=== PATIENT | male | born 1960 | race Caucasian/White ===

== ENCOUNTER 2021-05-29 16:50 | Inpatient (IN) | payer SELFPAY ==
[~2021-05-29] VITALS: Ht 172.7 cm; Wt 110.3 kg
[2021-05-29] MEDS ORDERED: VANCOMYCIN PER PHARMACY 0 MG IV SCH ×2 (18:15→21:45)
[2021-05-29] MEDS ORDERED: PIPERACILLIN-TAZOB 3.375GM 100 ML IV ONE (18:15)
[2021-05-29 19:07] LABS: Hematocrit 41.6 % (41.0-53.0); Hemoglobin 13.9 g/dL (13.5-17.5); Mean Corpuscular Hemoglobin 28.8 pg (28.0-32.0); Mean Corpuscular Hgb Conc. 33.4 g/dL (32.0-36.0); Mean Corpuscular Volume 86.3 fL (80.0-100.0); Red Blood Cells 4.82 10^6/uL (4.5-5.90); Red Cell Distribution Width 14.1 % (11.8-14.3); White Blood Cell 19.1 10^3/uL (4.4-10.8)
[2021-05-29 19:14] LABS: Band Neutrophils % (manual) 0; Basophils % (manual) 0 (0.0-2.0); Blast Cells 0; Eosinophils % (manual) 0 (0-7); Metamyelocytes % 0; Myelocytes % 0; Promyelocytes % 0; Reactive Lymphocytes 0
[2021-05-29 19:18] LABS: Alanine Aminotransferase 15 U/L (16-61); Albumin 2.6 g/dL (3.4-5.0); Anion Gap 16 (5-15); Blood Urea Nitrogen 27 mg/dL (7-18); Carbon Dioxide 19 mmol/L (21-32); Chloride 96 mmol/L (98-107); Potassium 3.8 mmol/L (3.5-5.1); Sodium 131 mmol/L (136-145)
[2021-05-29 19:21] LABS: INR 1.06 (0.9-1.15); Partial Thromboplastin Time 22.5 sec (23.6-33.0)
[2021-05-29 19:23] LABS: Lactic Acid w/Reflex 2.1 mmol/L (0.4-2.0)
[2021-05-29 19:25] LABS: Lymphocytes % (manual) 5 (10.0-50.0); Monocytes % (manual) 6 (0-12)
[2021-05-29 19:27] LABS: Alkaline Phosphatase 148 U/L (45-117); Aspartate Aminotransferase 16 U/L (15-37); Bilirubin, Total 0.4 mg/dL (0.2-1.0); GFR African American 79 mL/min; GFR Non-African American 65 mL/min; Total Protein 7.8 g/dL (6.4-8.2)
[2021-05-29 19:42] LABS: BUN/Creatinine Ratio 22.3; Glucose 462 mg/dL (74-106)
[2021-05-29] MEDS ORDERED: InsuLIN REG 1unit/0.01ml Soln (100units/ml) IV ONE (20:00)
[2021-05-29] MEDS ORDERED: SODIUM CHLORIDE 0.9% 1,000 ML IV ONE (20:00)
[2021-05-29] MEDS ORDERED: VANCOMYCIN 1GM/250ML 250 ML IV ONE (20:00)
[2021-05-29] MEDS ORDERED: metroNIDAZOLE 500MG/100ML 100 ML IV ONE (20:00)
[2021-05-29 20:47] LABS: CRP High Sensitivity > 19 mg/dL (< 0.3)
[2021-05-29] MEDS ORDERED: ACETAMINOPHEN 325 MG TAB PO PRN (21:45)
[2021-05-29] MEDS ORDERED: NITROGLYCERIN 0.4 MG SL TAB SL PRN (21:45)
[2021-05-29] MEDS ORDERED: ONDANSETRON HCL 4 MG/2 ML VIAL IV PRN (21:45)
[2021-05-29] MEDS ORDERED: HYDROcodone-ACET 5/325MG TAB PO PRN (21:45)
[2021-05-29] MEDS ORDERED: DEXTROSE (50%) 50ML SYRG IV PRN (21:45)
[2021-05-29] MEDS ORDERED: SODIUM CHLORIDE 0.9% 500 ML IV ONE (21:45)
[2021-05-29] MEDS ORDERED: MORPHINE SULFATE INJECTION 2 MG/ML SYRG IV PRN ×2 (21:45)
[2021-05-29 23:59] VITALS: BP 158/76
[2021-05-30] VITALS (8 sets, daily range): BP systolic 132–160; BP diastolic 73–83
[2021-05-30] MEDS: SODIUM CHLORIDE 0.9% 1,000 ML IV SCH ×2 (00:45→19:48)
[2021-05-30 02:09] LABS: Basophils # (auto) 0 10 ^3/uL (0-0.2); Basophils % (auto) 0.2 % (0.0-2.0); Eosinophils # (auto) 0 10 ^3/uL (0-0.8); Eosinophils % (auto) 0.1 % (0.0-7.0); Hematocrit 37.7 % (41.0-53.0); Hemoglobin 12.8 g/dL (13.5-17.5); Lymphocytes # (auto) 0.8 10 ^3/uL (0.4-5.4); Lymphocytes % (auto) 4.9 % (10.0-50.0); Mean Corpuscular Hemoglobin 29.1 pg (28.0-32.0); Mean Corpuscular Volume 85.7 fL (80.0-100.0); Monocytes # (auto) 1.2 10 ^3/uL (0-1.3); Monocytes % (auto) 7.2 % (0.0-12.0); Neutrophils # (auto) 14.7 10 ^3/uL (1.6-8.6); Neutrophils % (auto) 87.6 % (37.0-80.0); Nucleated Red Blood Cells % 0.1 %; Red Cell Distribution Width 14.1 % (11.8-14.3); White Blood Cell 16.7 10^3/uL (4.4-10.8)
[2021-05-30 02:27] LABS: Albumin 2.3 g/dL (3.4-5.0); Calcium 8.4 mg/dL (8.5-10.1); Potassium 3.7 mmol/L (3.5-5.1)
[2021-05-30 02:30] LABS: Bilirubin, Total 0.5 mg/dL (0.2-1.0); Total Protein 6.8 g/dL (6.4-8.2)
[2021-05-30] MEDS: ACCU-CHEK COMFORT CURVE STRIP VI SCH ×5 (04:00→20:29)
[2021-05-30] MEDS: InsuLIN REG 1unit/0.01ml Soln (100units/ml) SC SCH ×5 (04:00→20:48)
[2021-05-30] MEDS: PIPERACILLIN-TAZOB 3.375GM 100 ML IV SCH ×3 (05:40→19:47)
[2021-05-30] MEDS ORDERED: PROPOFOL 10 MG/ML 20 ML IV ONE ×2 (07:27→08:43)
[2021-05-30] MEDS ORDERED: LIDOCAINE 1% (LOCAL ANESTH.) PF 5ml SDV ONE (07:27)
[2021-05-30] MEDS ORDERED: BUPIVACAINE HCL 50 ML ONE (07:28)
[2021-05-30] MEDS ORDERED: BUPIVACAINE 0.5% P/F INJ 10 ML VIAL ONE (07:28)
[2021-05-30] MEDS ORDERED: METOCLOPRAMIDE HCL 5MG/ml INJ 2ml VIAL ONE (07:30)
[2021-05-30] MEDS ORDERED: DexAMETHasone SOD PHOS 10MG/1ML VIAL INJ ONE (07:30)
[2021-05-30] MEDS ORDERED: fentaNYL CITRATE 100 MCG/2 ML VL ONE (07:31)
[2021-05-30] MEDS ORDERED: MIDAZOLAM HCL 2MG/2ML 2ml VIAL (1mg/ml) ONE (07:32)
[2021-05-30] MEDS ORDERED: ceFAZolin 1GM VL ONE (07:38)
[2021-05-30] MEDS ORDERED: DAKINS HALF STR 0.25% (NaHypochlorite) 473 ML TOPICAL SOL TOP ONE (09:00)
[2021-05-30] MEDS ORDERED: HYDROmorphone HCL 2 MG/ML VL/or syr ONE (09:06)
[2021-05-30] MEDS ORDERED: METOCLOPRAMIDE HCL 5MG/ml INJ 2ml VIAL IV PRN (09:15)
[2021-05-30] MEDS ORDERED: HYDROmorphone HCL 2 MG/ML VL/or syr IV PRN ×2 (09:15)
[2021-05-30] MEDS ORDERED: ONDANSETRON HCL 4 MG/2 ML VIAL IV PRN (09:15)
[2021-05-30] MEDS ORDERED: fentaNYL CITRATE 100 MCG/2 ML VL IV PRN (09:15)
[2021-05-30] MEDS: VANCOMYCIN 1GM/250ML 250 ML IV SCH ×2 (13:34→23:13)
[2021-05-30] MEDS ORDERED: ONDANSETRON HCL 4 MG/2 ML VIAL IV ONE (13:44)
[2021-05-30] MEDS: PANTOPRAZOLE 40 MG/10 ML VIAL INJ IV SCH (16:32)
[2021-05-31] MEDS: ACCU-CHEK COMFORT CURVE STRIP VI SCH ×6 (04:11→20:14)
[2021-05-31] MEDS: InsuLIN REG 1unit/0.01ml Soln (100units/ml) SC SCH ×6 (04:14→20:15)
[2021-05-31 05:00] VITALS: BP 161/81
[2021-05-31] MEDS: PIPERACILLIN-TAZOB 3.375GM 100 ML IV SCH ×4 (06:00→18:33)
[2021-05-31 09:00] VITALS: BP 144/83
[2021-05-31] MEDS: VANCOMYCIN 1GM/250ML 250 ML IV SCH ×2 (09:19→17:53)
[2021-05-31] MEDS: PANTOPRAZOLE 40 MG/10 ML VIAL INJ IV SCH (09:24)
[2021-05-31 13:00] VITALS: BP 136/80
[2021-05-31 17:00] VITALS: BP 143/76
[2021-05-31 20:00] VITALS: BP 162/87
[2021-05-31] MEDS: INSULIN LANTUS (GLARGINE) 1 /0.01ml (100units/ml) SC SCH (21:56)
[2021-05-31 22:00] VITALS: BP 162/87
[2021-06-01] MEDS: ACCU-CHEK COMFORT CURVE STRIP VI SCH ×6 (00:30→21:43)
[2021-06-01] MEDS: PIPERACILLIN-TAZOB 3.375GM 100 ML IV SCH ×5 (00:30→23:38)
[2021-06-01] MEDS: InsuLIN REG 1unit/0.01ml Soln (100units/ml) SC SCH ×6 (00:31→21:43)
[2021-06-01] MEDS: VANCOMYCIN 1GM/250ML 250 ML IV SCH ×3 (01:17→18:25)
[2021-06-01 05:00] VITALS: BP 151/79
[2021-06-01 06:27] LABS: Hematocrit 39.5 % (41.0-53.0); Hemoglobin 13.7 g/dL (13.5-17.5); Mean Corpuscular Hemoglobin 29.2 pg (28.0-32.0); Mean Corpuscular Hgb Conc. 34.8 g/dL (32.0-36.0); Mean Corpuscular Volume 83.9 fL (80.0-100.0); Red Cell Distribution Width 13.8 % (11.8-14.3)
[2021-06-01 06:35] LABS: Calcium 8.2 mg/dL (8.5-10.1); Potassium 3.5 mmol/L (3.5-5.1)
[2021-06-01 06:37] LABS: BUN/Creatinine Ratio 17.1
[2021-06-01 06:49] LABS: Basophils % (manual) 0 (0.0-2.0); Blast Cells 0; Myelocytes % 0; Promyelocytes % 0; Reactive Lymphocytes 0
[2021-06-01 07:49] LABS: Band Neutrophils % (manual) 31; Eosinophils % (manual) 4 (0-7); Lymphocytes % (manual) 22 (10.0-50.0); Metamyelocytes % 4; Monocytes % (manual) 3 (0-12)
[2021-06-01 09:03] VITALS: BP 171/91
[2021-06-01] MEDS: PANTOPRAZOLE 40 MG/10 ML VIAL INJ IV SCH (09:23)
[2021-06-01] MEDS: INSULIN LANTUS (GLARGINE) 1 /0.01ml (100units/ml) SC SCH ×2 (09:32→21:44)
[2021-06-01] MEDS ORDERED: DEXTROSE (50%) 50ML SYRG IV PRN (11:45)
[2021-06-01 13:00] VITALS: BP 173/89
[2021-06-01] MEDS: amLODIPine BESYLATE 5 MG TAB PO SCH (13:05)
[2021-06-01 17:00] VITALS: BP 156/81
[2021-06-01 22:00] VITALS: BP 151/73
[2021-06-02] MEDS: VANCOMYCIN 1GM/250ML 250 ML IV SCH ×3 (01:00→17:00)
[2021-06-02] MEDS: PIPERACILLIN-TAZOB 3.375GM 100 ML IV SCH ×2 (05:08→12:00)
[2021-06-02 05:33] VITALS: BP 164/88
[2021-06-02 05:37] LABS: Calcium 8.2 mg/dL (8.5-10.1); Potassium 3.6 mmol/L (3.5-5.1)
[2021-06-02 05:39] LABS: BUN/Creatinine Ratio 10.8
[2021-06-02 05:47] LABS: Hematocrit 35.6 % (41.0-53.0); Hemoglobin 12.4 g/dL (13.5-17.5); Mean Corpuscular Hemoglobin 28.9 pg (28.0-32.0); Mean Corpuscular Hgb Conc. 34.9 g/dL (32.0-36.0); Mean Corpuscular Volume 82.9 fL (80.0-100.0); Red Cell Distribution Width 13.8 % (11.8-14.3); White Blood Cell 9.7 10^3/uL (4.4-10.8)
[2021-06-02 05:53] LABS: Basophils % (manual) 0 (0.0-2.0); Blast Cells 0; Promyelocytes % 0; Reactive Lymphocytes 0
[2021-06-02] MEDS: ACCU-CHEK COMFORT CURVE STRIP VI SCH ×4 (06:28→22:54)
[2021-06-02] MEDS: hydrALAZINE HCL 20 MG/ML VL IV PRN (06:29)
[2021-06-02] MEDS: InsuLIN REG 1unit/0.01ml Soln (100units/ml) SC SCH ×4 (06:36→23:17)
[2021-06-02 07:06] LABS: Band Neutrophils % (manual) 1; Eosinophils % (manual) 7 (0-7); Lymphocytes % (manual) 15 (10.0-50.0); Metamyelocytes % 1; Monocytes % (manual) 13 (0-12); Myelocytes % 2
[2021-06-02 08:45] VITALS: BP 148/71
[2021-06-02] MEDS: PANTOPRAZOLE 40 MG/10 ML VIAL INJ IV SCH (09:40)
[2021-06-02] MEDS: amLODIPine BESYLATE 5 MG TAB PO SCH (09:40)
[2021-06-02] MEDS: INSULIN LANTUS (GLARGINE) 1 /0.01ml (100units/ml) SC SCH ×2 (10:10→23:17)
[2021-06-02 16:00] VITALS: BP 140/78
[2021-06-02] MEDS: AMPICILLIN & SULBACTAM SODIUM 3 GM in SODIUM CHL 0.9% 100 ML IV SCH (20:54)
[2021-06-02 22:00] VITALS: BP 147/80
[2021-06-03] MEDS: AMPICILLIN & SULBACTAM SODIUM 3 GM in SODIUM CHL 0.9% 100 ML IV SCH ×4 (03:14→21:04)
[2021-06-03 05:00] VITALS: BP 165/89
[2021-06-03 06:17] LABS: Hematocrit 34.7 % (41.0-53.0); Hemoglobin 12.1 g/dL (13.5-17.5); Mean Corpuscular Hemoglobin 29.3 pg (28.0-32.0); Mean Corpuscular Volume 83.6 fL (80.0-100.0); Red Blood Cells 4.15 10^6/uL (4.5-5.90); Red Cell Distribution Width 13.7 % (11.8-14.3); White Blood Cell 8.8 10^3/uL (4.4-10.8)
[2021-06-03 06:25] LABS: Band Neutrophils % (manual) 0; Basophils % (manual) 0 (0.0-2.0); Blast Cells 0; Metamyelocytes % 0; Myelocytes % 0; Promyelocytes % 0; Reactive Lymphocytes 0
[2021-06-03] MEDS: ACCU-CHEK COMFORT CURVE STRIP VI SCH ×3 (06:26→17:41)
[2021-06-03] MEDS: DAKINS QUARTER STR 0.125% (NaHypochlorite) 473 ML TOPICAL SOL TOP SCH ×2 (06:26→11:03)
[2021-06-03 06:28] LABS: BUN/Creatinine Ratio 12.1; Calcium 8.1 mg/dL (8.5-10.1); Potassium 3.7 mmol/L (3.5-5.1)
[2021-06-03] MEDS: InsuLIN REG 1unit/0.01ml Soln (100units/ml) SC SCH ×3 (06:36→17:41)
[2021-06-03] MEDS: hydrALAZINE HCL 20 MG/ML VL IV PRN (06:46)
[2021-06-03 07:35] LABS: Eosinophils % (manual) 6 (0-7); Lymphocytes % (manual) 18 (10.0-50.0); Monocytes % (manual) 14 (0-12)
[2021-06-03 09:00] VITALS: BP 134/69
[2021-06-03] MEDS: PANTOPRAZOLE 40 MG/10 ML VIAL INJ IV SCH (09:56)
[2021-06-03] MEDS: amLODIPine BESYLATE 5 MG TAB PO SCH (09:57)
[2021-06-03] MEDS: INSULIN LANTUS (GLARGINE) 1 /0.01ml (100units/ml) SC SCH ×2 (11:54→22:31)
[2021-06-03] MEDS ORDERED: DEXTROSE (50%) 50ML SYRG IV PRN (12:45)
[2021-06-03 13:00] VITALS: BP 151/83
[2021-06-03 17:00] VITALS: BP 143/70
[2021-06-03] MEDS ORDERED: InsuLIN REG 1unit/0.01ml Soln (100units/ml) SC SCH (22:00)
[2021-06-03 22:17] VITALS: BP 142/76
[2021-06-04] MEDS: DAKINS QUARTER STR 0.125% (NaHypochlorite) 473 ML TOPICAL SOL TOP SCH ×2 (00:36→09:00)
[2021-06-04] MEDS: ACCU-CHEK COMFORT CURVE STRIP VI SCH ×4 (00:37→17:58)
[2021-06-04] MEDS: AMPICILLIN & SULBACTAM SODIUM 3 GM in SODIUM CHL 0.9% 100 ML IV SCH ×3 (02:04→14:26)
[2021-06-04 04:57] LABS: Basophils # (auto) 0 10 ^3/uL (0-0.2); Basophils % (auto) 0.4 % (0.0-2.0); Eosinophils # (auto) 0.3 10 ^3/uL (0-0.8); Eosinophils % (auto) 3.5 % (0.0-7.0); Hematocrit 35.9 % (41.0-53.0); Hemoglobin 12.3 g/dL (13.5-17.5); Lymphocytes # (auto) 1.5 10 ^3/uL (0.4-5.4); Lymphocytes % (auto) 16.6 % (10.0-50.0); Mean Corpuscular Hemoglobin 29.1 pg (28.0-32.0); Mean Corpuscular Hgb Conc. 34.4 g/dL (32.0-36.0); Mean Corpuscular Volume 84.5 fL (80.0-100.0); Monocytes # (auto) 0.8 10 ^3/uL (0-1.3); Monocytes % (auto) 8.3 % (0.0-12.0); Neutrophils # (auto) 6.6 10 ^3/uL (1.6-8.6); Neutrophils % (auto) 71.2 % (37.0-80.0); Nucleated Red Blood Cells % 0.1 %; Red Blood Cells 4.24 10^6/uL (4.5-5.90); Red Cell Distribution Width 14.1 % (11.8-14.3); White Blood Cell 9.3 10^3/uL (4.4-10.8)
[2021-06-04 05:45] VITALS: BP 144/79
[2021-06-04 05:48] LABS: BUN/Creatinine Ratio 13.6; Calcium 8.4 mg/dL (8.5-10.1); Potassium 4.3 mmol/L (3.5-5.1)
[2021-06-04] MEDS: InsuLIN REG 1unit/0.01ml Soln (100units/ml) SC SCH ×3 (07:03→17:59)
[2021-06-04] MEDS: PANTOPRAZOLE 40 MG/10 ML VIAL INJ IV SCH (08:59)
[2021-06-04 09:00] VITALS: BP 139/78
[2021-06-04] MEDS: amLODIPine BESYLATE 5 MG TAB PO SCH (09:00)
[2021-06-04] MEDS ORDERED: LANC-336 XX (10:25)
[2021-06-04] MEDS ORDERED: INSREGI SC (10:25)
[2021-06-04] MEDS ORDERED: BLOO1KIT60 XX (10:25)
[2021-06-04] MEDS ORDERED: AMOX500T86 PO (10:25)
[2021-06-04] MEDS ORDERED: INSLANTI SC (10:25)
[2021-06-04] MEDS: INSULIN LANTUS (GLARGINE) 1 /0.01ml (100units/ml) SC SCH (12:24)
[2021-06-04 12:37] VITALS: BP 143/80
== END 2021-06-04 18:30 | disposition home or self-care (01) | DRG 871 ==
LOC: ER 16:50 → TELE 21:41 → TELE-WESTW 23:43 → WEST WING 05-31 00:26
PROVIDERS: ADMIT Nurse Practitioner; ATTEND Internal Medicine Pulmonary Disease
PROC: 0Y9N0ZZ Drainage of Left Foot, Open Approach (ICD-10-PCS; principal; 2021-05-30 07:44)
DX: A41.9 Sepsis, unspecified organism (principal); E11.10 Type 2 diabetes mellitus with ketoacidosis without coma; E43 Unspecified severe protein-calorie malnutrition; M72.6 Necrotizing fasciitis; L02.612 Cutaneous abscess of left foot; E66.9 Obesity, unspecified; Z68.37 Body mass index [BMI] 37.0-37.9, adult; Z20.822 Contact with and (suspected) exposure to COVID-19
CPT/HCPCS: 36415; 73700; 80048; 80053; 80202; 82010; 82962; 83036; 83605; 85007; 85025; 85027; 85610; 85652; 85730; 86141; 86850; 86900; 86901; 87040; 87070; 87075; 87076; 87077; 87205; 93005; 96365; 96367; 96368; 96375; 97163; 99291; C9113; G0378; J0690; J1100; J1815; J2250; J2405; J2543; J2704; J3490

== ENCOUNTER → 2022-07-28 | Outpatient (CLI) | payer MEDICAID ==
[~2022-07-28] MED LIST: AMOX500T86 PO; BLOO1KIT60 XX; INSLANTI SC; INSREGI SC; LANC-336 XX
== END | disposition home or self-care (01) ==
LOC: LAB 13:37
PROVIDERS: ATTEND Podiatrist
DX: E11.621 Type 2 diabetes mellitus with foot ulcer (principal)
CPT/HCPCS: 87075; 87205

== ENCOUNTER → 2023-05-20 | Outpatient (CLI) | payer MEDICAID ==
[~2023-05-20] VITALS: Ht 30.5 cm; Wt 0.5 kg
[~2023-05-20] MED LIST changes: +SODIUM CHLOR 0.9% PF (SALINE LOCK) 10ML VIAL/SYR IV SCH
[2023-05-20] MEDS: LIDOCAINE 1% (LOCAL ANESTH.) PF 5ml SDV ID ONE (14:23)
== END | disposition home or self-care (01) ==
LOC: XYW 12:50
PROVIDERS: ATTEND Student in an Organized Health Care Education/Training Program
DX: Z45.2 Encounter for adjustment and management of vascular access device (principal); E11.621 Type 2 diabetes mellitus with foot ulcer; L97.509 Non-pressure chronic ulcer of other part of unspecified foot with unspecified severity; Z79.4 Long term (current) use of insulin; Z79.899 Other long term (current) drug therapy; Z98.890 Other specified postprocedural states
CPT/HCPCS: 36569; 71045; C1751; J7050

== ENCOUNTER 2024-02-09 08:23 | Inpatient (IN) | payer MEDICAID ==
[~2024-02-09] VITALS: Ht 172.7 cm; Wt 115.8 kg
[~2024-02-09 08:23] MED LIST changes: -SODIUM CHLOR 0.9% PF (SALINE LOCK) 10ML VIAL/SYR IV SCH
--- NOTE | 2024-02-09 09:00 | ED.PDOC ---
Musculoskeletal HPI Comments 63Y M with PMHx DM presents to ED for chief complaint lt foot cellulitis q2dlanv. Pt states he had a blister 2 weeks ago but last night it became worse. Pt says he developed serosanguineous drainage and redness/swelling of the lt foot last night. Pt is being f/u by Dr. Corey and is scheduled for grafts later this month. However, pt was told by Dr. Corey to come to the ED if blisters worsened. Chief Complaint: Cellulitis Time Seen by MD: 08:42 Primary Care Provider: DR BECK Reviewed Notes: Nurses Notes, Medications, Allergies Allergies: Coded Allergies: NO KNOWN ALLERGIES (Unverified , 05/29/21) Home Meds Active Scripts Amoxicillin & Pot Clavulanate (Augmentin) 500 Mg Tab, 875 MG PO BID, #28 TAB Prov:BERNARD DEVLIN MD 06/04/21 Lancets (Advocate Lancets) Lancets Mis, EA XX ACHS PRN, #90 3 Refills Prov:BERNARD DEVLIN MD 06/04/21 Blood Glucose Monitoring Suppl (D-Care Glucometer Kit/Glu W/Device) 1 Kit Kit, EA XX DAILY, #30 3 Refills Prov:BERNARD DEVLIN MD 06/04/21 Insulin Regular (Human) (Novolin R) 100 Unit/Ml Inj, 0 UNITS SC AC for 30 Days, #30 INJ Prov:BERNARD DEVLIN MD 06/04/21 Insulin Glargine (Lantus) 100 Unit/Ml Inj, 15 UNITS SC BID for 30 Days, #30 INJ Prov:BERNARD DEVLIN MD 06/04/21 Information Source: Patient Mode of Arrival: Ambulatory Location: Left Extremity Location: Foot Timing: Weeks Severity: Moderate Able to Move Extremity: Yes Bear Weight: Limited Pain: None Symptoms: Swelling, Erythema, Warmth DVT Risk Factors: NONE Associated signs and symptoms: Other Past Medical History PAST MEDICAL HISTORY: DM Surgical History: Denies all surgeries Family History Family History: Reviewed,noncontributory to illness Social History Smoker: Non-Smoker Alcohol: Denies ETOH Use Drugs: Denies Drug Use Lives In: Home Constitutional: denies: chills, diaphoresis, fatigue, fever, malaise, sweats, weakness, others EENTM: denies: blurred vision, double vision, ear bleeding, ear discharge, ear drainage, ear pain, ear ringing, eye pain, eye redness, hearing loss, mouth pain, mouth swelling, nasal discharge, nose bleeding, nose congestion, nose pain, photophobia, tearing, throat pain, throat swelling, voice changes, others Respiratory: denies: cough, hemoptysis, orthopnea, SOB at rest, shortness of breath, SOB with excertion, stridor, wheezing, others Cardiovascular: denies: chest pain, dizzy spells, diaphoresis, Dyspnea on exertion, edema, irregular heart beat, left arm pain, lightheadedness, palpitations, PND, syncope, others Gastrointestinal: denies: abdomen distended, abdominal pain, blood streaked bowels, constipated, diarrhea, dysphagia, difficulty swallowing, hematemesis, melena, nausea, poor appetite, poor fluid intake, rectal bleeding, rectal pain, vomiting, others Genitourinary: denies: burning, dysuria, flank pain, frequency, hematuria, incontinence, penile discharge, penile sore, pain, testicle pain, testicle swelling, urgency, others Neurological: denies: dizziness, fainting, headache, left sided numbness, left sided weakness, numbness, paresthesia, pre-existing deficit, right sided numbness, right sided weakness, seizure, speech problems, tingling, tremors, weakness, others Musculoskeletal: denies: back pain, gout, joint pain, joint swelling, muscle pain, muscle stiffness, neck pain, others Integumetry: reports: wounds (lt foot cellulitis); denies: bruises, change in color, change in hair/nails, dryness, laceration, lesions, lumps, rash, others Allergic/Immunocompromised: denies: Difficulty Healing, Frequent Infections, Hives, Itching, others Hematologic/Lymphatic: denies: anemia, blood clots, easy bleeding, easy bruising, swollen glands, others Endocrine: denies: excessive hunger, excessive sweating, excessive thirst, excessive urination, flushing, intolerance to cold, intolerance to heat, unexplained weight gain, unexplained weight loss, others Psychiatric: denies: anxiety, bipolar disorder, depression, hopeless, panic disorder, schizophrenia, sleepless, suicidal, others All Other Systems: Reviewed and Negative Physical Exam General Appearance: No Apparent Distress, Normal HEENT: Normal ENT Inspection, Pharynx Normal, TMs Normal Neck: Full Range of Motion, Non-Tender, Normal, Normal Inspection Respiratory: Chest Non-Tender, Lungs Clear, No Accessory Muscle Use, No Respiratory Distress, Normal Breath Sounds Cardiovascular: No Edema, No JVD, No Murmur, No Gallop, Normal Peripheral Pulses, Regular Rate/Rhythm Breast Exam: Deferred Gastrointestinal: No Organomegaly, Non Tender, No Pulsatile Mass, Normal Bowel Sounds, Soft Genitalia: Deferred Pelvic: Deferred Rectal: Deferred Extremities: No calf tenderness, Normal capillary refill, Other (Patient with multiple ulcerations and erythema and warmth to the left foot) Musculoskeletal : Apperance: Normal Neurologic: Alert, puttier II-XII nml as Tested, No Motor Deficits, Normal Affect, Normal Mood, No Sensory Deficits Cerebellar Function: NOT DONE Reflexes: NOT DONE Skin: Dry, Normal Color, Warm Lymphatic: No Adenopathy Was a procedure done? Was a procedure done?: No Differential Diagnosis EXT Differential Diagnosis: Cellulitis X-Ray, Labs, Meds, VS Vital Signs Date Time Temp Pulse Resp B/P (MAP) Pulse Ox O2 Delivery O2 Flow Rate FiO2 02/09/24 11:17 98.2 82 17 150/75 (100) 98 98.2 02/09/24 10:00 99 18 96 Room Air* 0 21 02/09/24 09:56 98.3 98.3 02/09/24 09:42 99 18 179/78 (111) 96 02/09/24 09:42 95 18 99 Room Air 02/09/24 08:39 98.4 95 16 167/71 (103) 99 Lab Test 02/09/24 09:50 Range/Units White Blood Count 15.6 H 4.4-10.8 10^3/uL Red Blood Count 4.28 L 4.5-5.90 10^6/uL Hemoglobin 12.5 L 13.5-17.5 g/dL Hematocrit 37.3 L 41.0-53.0 % Mean Corpuscular Volume 87.2 80.0-100.0 fL Mean Corpuscular Hemoglobin 29.1 28.0-32.0 pg Mean Corpuscular Hemoglobin Concent 33.4 32.0-36.0 g/dL Red Cell Distribution Width 13.8 11.8-14.3 % Platelet Count 211 140-450 10^3/uL Mean Platelet Volume 8.4 6.9-10.8 fL Neutrophils (%) (Auto) 81.9 H 37.0-80.0 % Lymphocytes (%) (Auto) 8.8 L 10.0-50.0 % Monocytes (%) (Auto) 8.7 0.0-12.0 % Eosinophils (%) (Auto) 0.5 0.0-7.0 % Basophils (%) (Auto) 0.1 0.0-2.0 % Neutrophils # (Auto) 12.8 H 1.6-8.6 10 ^3/uL Lymphocytes # (Auto) 1.4 0.4-5.4 10 ^3/uL Monocytes # (Auto) 1.4 H 0-1.3 10 ^3/uL Eosinophils # (Auto) 0.1 0-0.8 10 ^3/uL Basophils # (Auto) 0 0-0.2 10 ^3/uL Nucleated Red Blood Cells 0.0 % Sodium Level 133 L 136-145 mmol/L Potassium Level 4.6 3.5-5.1 mmol/L Chloride Level 100 98-107 mmol/L Carbon Dioxide Level 26 20-31 mmol/L Anion Gap 7 5-15 Blood Urea Nitrogen 32 H 9-23 mg/dL Creatinine 1.61 H 0.700-1.30 mg/dL Glomerular Filtration Rate Calc 48 >90 mL/min BUN/Creatinine Ratio 19.9 10.0-20.0 Serum Glucose 306 H 74-106 mg/dL Lactic Acid Level 1.4 0.4-2.0 mmol/L Calcium Level 9.7 8.7-10.4 mg/dL Current Medications Medications (Trade) Dose Ordered Sig/Justine Route Start Time Stop Time Status Last Admin Vancomycin HCl 200 ml @ 200 mls/hr ONCE ONCE IV 02/09/24 09:30 02/09/24 10:29 DC 02/09/24 10:[address] [address] Ph: [phone] DIAGNOSTIC IMAGING Diagnostic Imaging Report : [id number] Signed PATIENT: OBIE WARREN ACCT: [id number] UNIT: [id number] : 1960 LOC: ER ROOM / BED: / AGE / SEX: 63 / M ADM STATUS: REG ER SERVICE 1 ORDERING PHYSICIAN: CYNDY JEAN MD PROCEDURE(s): LFOOT - L FOOT 3 VIEW XRAY REASON: foot wound ORDER NUMBER(s): [id number], ACCESSION NUMBER(s): [id number] CLINICAL INDICATION: foot wound TECHNIQUE: XY L FOOT 3 VIEW XRAY Comparison: None FINDINGS/IMPRESSION: : There is no evidence of acute fracture or dislocation. Degenerative spurring of the calcaneus. Vascular atherosclerotic calcifications are present. Chronic appearing erosive changes of the distal 5th metatarsal with large volume subcutaneous emphysema and swelling at the lateral aspect and dorsal aspect of the foot most prominent around the 5th metatarsal. There is suggestion of soft- tissue ulceration of the lateral aspect of the foot. MRI can be obtained to further evaluate for presence of acute osteomyelitis if clinically indicated. 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 We will cover patient empirically on antibiotics and admit patient for expert consultation) Impression: Primary Impression: Cellulitis of left lower extremity Disposition: ADMITTED INPATIENT Admit to: Med Surg Condition: Serious Critical Care Note Critical Care Time?: No Stability Stability form required: No Heart Score Heart Score: Heart Score Response (Comments) Value History N/A 0 EKG N/A 0 Age N/A 0 Risk Factors N/A 0 Troponin N/A 0 Total 0 I personally scribed for CYNDY JEAN MD (JAMES) on 02/09/24 at 09:00. Electronically submitted by [employer] ([employer]). I personally scribed for CYNDY JEAN MD ([email or web address]) on 02/09/24 at 10:15. Electronically submitted by [employer] ([employer]). CYNDY JEAN MD Feb 09, 2024 09:00
--- NOTE | 2024-02-09 09:49 | DVH ---
CLINICAL INDICATION: foot wound TECHNIQUE: XY L FOOT 3 VIEW XRAY Comparison: None FINDINGS/IMPRESSION: : There is no evidence of acute fracture or dislocation. Degenerative spurring of the calcaneus. Vascular atherosclerotic calcifications are present. Chronic appearing erosive changes of the distal 5th metatarsal with large volume subcutaneous emphyse ma and swelling at the lateral aspect and dorsal aspect of the foot most prominent around the 5th met atarsal. There is suggestion of soft-tissue ulceration of the lateral aspect of the foot. MRI can be obtained to further evaluate for presence of acute osteomyelitis if clinically indicated.
[2024-02-09 10:00] VITALS: PULSE 99; RESP 18; O2SAT 96
[2024-02-09] MEDS: VANCOMYCIN 1GM/250ML KIT 200 ML IV ONE (10:00)
[2024-02-09 10:11] LABS: Basophils # (auto) 0 10 ^3/uL (0-0.2); Basophils % (auto) 0.1 % (0.0-2.0); Eosinophils # (auto) 0.1 10 ^3/uL (0-0.8); Eosinophils % (auto) 0.5 % (0.0-7.0); Hematocrit 37.3 % (41.0-53.0); Hemoglobin 12.5 g/dL (13.5-17.5); Lymphocytes # (auto) 1.4 10 ^3/uL (0.4-5.4); Lymphocytes % (auto) 8.8 % (10.0-50.0); Mean Corpuscular Hemoglobin 29.1 pg (28.0-32.0); Mean Corpuscular Hgb Conc. 33.4 g/dL (32.0-36.0); Mean Corpuscular Volume 87.2 fL (80.0-100.0); Monocytes # (auto) 1.4 10 ^3/uL (0-1.3); Monocytes % (auto) 8.7 % (0.0-12.0); Neutrophils # (auto) 12.8 10 ^3/uL (1.6-8.6); Neutrophils % (auto) 81.9 % (37.0-80.0); Platelet Count (auto) 211 10^3/uL (140-450); Red Blood Cells 4.28 10^6/uL (4.5-5.90); Red Cell Distribution Width 13.8 % (11.8-14.3); White Blood Cell 15.6 10^3/uL (4.4-10.8)
[2024-02-09 10:15] LABS: Chloride 100 mmol/L (98-107); Potassium 4.6 mmol/L (3.5-5.1)
[2024-02-09 10:16] LABS: Anion Gap 7 (5-15); Calcium 9.7 mg/dL (8.7-10.4); Carbon Dioxide 26 mmol/L (20-31)
[2024-02-09 10:18] LABS: Sodium 133 mmol/L (136-145)
[2024-02-09 10:21] LABS: BUN/Creatinine Ratio 19.9 (10.0-20.0)
[2024-02-09 10:43] LABS: Blood Urea Nitrogen 32 mg/dL (9-23); Glucose 306 mg/dL (74-106)
[2024-02-09] MEDS ORDERED: DEXTROSE (50%) 50ML SYRG IV PRN (17:00)
[2024-02-09] MEDS ORDERED: ACETAMINOPHEN 325 MG TAB PO PRN (17:00)
[2024-02-09] MEDS ORDERED: ONDANSETRON HCL 4 MG/2 ML VIAL IV PRN (17:00)
[2024-02-09] MEDS ORDERED: HYDROmorphone HCL 2 MG/ML VL/or syr IV PRN (17:00)
[2024-02-09] MEDS ORDERED: HYDROcodone-ACET 5/325MG TAB PO PRN (17:00)
--- NOTE | 2024-02-09 17:00 | DVHHP2 ---
Admitting Diagnosis: Left foot pain History of Present Illness 63Y M with PMHx DM presents to ED for chief complaint lt foot cellulitis [id number]. Pt states he had a blister 2 weeks ago but last night it became worse. Pt says he developed serosanguineous drainage and redness/swelling of the lt foot last night. Pt is being f/u by Dr. Corey and is scheduled for grafts later this month. However, pt was told by Dr. Corey to come to the ED if blisters worsened. PAST MEDICAL HISTORY: DM Surgical History: Denies all surgeries Family History: Reviewed,noncontributory to illness Social History Smoker: Non-Smoker Alcohol: Denies ETOH Use Drugs: Denies Drug Use Lives In: Home Allergies: Coded Allergies: NO KNOWN ALLERGIES (Unverified , 05/29/21) Home Meds Active Scripts Amoxicillin & Pot Clavulanate (Augmentin) 500 Mg Tab, 875 MG PO BID, #28 TAB Prov:BERNARD DEVLIN MD 06/04/21 Lancets (Advocate Lancets) Lancets Mis, EA XX ACHS PRN, #90 3 Refills Prov:BERNARD DEVLIN MD 06/04/21 Blood Glucose Monitoring Suppl (D-Care Glucometer Kit/Glu W/Device) 1 Kit Kit, EA XX DAILY, #30 3 Refills Prov:BERNARD DEVLIN MD 06/04/21 Insulin Regular (Human) (Novolin R) 100 Unit/Ml Inj, 0 UNITS SC AC for 30 Days, #30 INJ Prov:BERNARD DEVLIN MD 06/04/21 Insulin Glargine (Lantus) 100 Unit/Ml Inj, 15 UNITS SC BID for 30 Days, #30 INJ Prov:BERNARD DEVLIN MD 06/04/21 Current Medications Current Medications Medications (Trade) Dose Ordered Sig/Justine Route PRN Reason Start Time Stop Time Status Last Admin Piperacillin Sod/ Tazobactam Sod 100 ml @ 100 mls/hr Q6H IV 02/09/24 16:45 UNV Diagnostic Test (Pha) (Accu-Chek Comfort Curve T) 1 strip ACHS 02/09/24 17:00 UNV Insulin Human Regular (InsuLIN R) HS SC 02/09/24 22:00 UNV Insulin Human Regular (InsuLIN R) AC SC 02/09/24 17:00 UNV Dextrose 50 ml UD PRN IV Blood Sugar LESS THAN 60 02/09/24 17:00 UNV Vital Signs Vital Signs Date Time Temp Pulse Resp B/P (MAP) Pulse Ox O2 Delivery O2 Flow Rate FiO2 02/09/24 11:17 98.2 82 17 150/75 (100) 98 98.2 02/09/24 10:00 Room Air* 0 21 Physical Exam Generally 63 years old male, morbidly obese, sitting on chair. Mild distress HEENT-atraumatic normocephalic Heart-regular rate and rhythm Lungs clear to auscultate Abdomen soft nontender nondistended Musculoskeletal-left foot covered in dressing. Wheezing fluids through the left lateral foot at the plantar surface. Neuro-AO x3, no focal deficit Results Labs Test 02/09/24 09:50 Range/Units White Blood Count 15.6 H 4.4-10.8 10^3/uL Red Blood Count 4.28 L 4.5-5.90 10^6/uL Hemoglobin 12.5 L 13.5-17.5 g/dL Hematocrit 37.3 L 41.0-53.0 % Mean Corpuscular Volume 87.2 80.0-100.0 fL Mean Corpuscular Hemoglobin 29.1 28.0-32.0 pg Mean Corpuscular Hemoglobin Concent 33.4 32.0-36.0 g/dL Red Cell Distribution Width 13.8 11.8-14.3 % Platelet Count 211 140-450 10^3/uL Mean Platelet Volume 8.4 6.9-10.8 fL Neutrophils (%) (Auto) 81.9 H 37.0-80.0 % Lymphocytes (%) (Auto) 8.8 L 10.0-50.0 % Monocytes (%) (Auto) 8.7 0.0-12.0 % Eosinophils (%) (Auto) 0.5 0.0-7.0 % Basophils (%) (Auto) 0.1 0.0-2.0 % Neutrophils # (Auto) 12.8 H 1.6-8.6 10 ^3/uL Lymphocytes # (Auto) 1.4 0.4-5.4 10 ^3/uL Monocytes # (Auto) 1.4 H 0-1.3 10 ^3/uL Eosinophils # (Auto) 0.1 0-0.8 10 ^3/uL Basophils # (Auto) 0 0-0.2 10 ^3/uL Nucleated Red Blood Cells 0.0 % Sodium Level 133 L 136-145 mmol/L Potassium Level 4.6 3.5-5.1 mmol/L Chloride Level 100 98-107 mmol/L Carbon Dioxide Level 26 20-31 mmol/L Anion Gap 7 5-15 Blood Urea Nitrogen 32 H 9-23 mg/dL Creatinine 1.61 H 0.700-1.30 mg/dL Glomerular Filtration Rate Calc 48 >90 mL/min BUN/Creatinine Ratio 19.9 10.0-20.0 Serum Glucose 306 H 74-106 mg/dL Lactic Acid Level 1.4 0.4-2.0 mmol/L Calcium Level 9.7 8.7-10.4 mg/dL Primary Diagnosis Sepsis due to Left foot cellulitis rule out osteomyelitis Plan Check blood culture, sputum culture X-ray of left foot shows chronic age-related changes at the distal 5th metatarsal with a large volume subcutaneous emphysema and swollen. Start vanco, Zosyn for broad-spectrum antibiotics Lactic acid within normal range Pain control Bowel regimen Consult Podiatry Dr. Shanks MRI left foot to rule out osteomyelitis Wound Care consult Check A1c level Insulin sliding scale moderate Monitor for pain and fever IV fluids LR Urine sodium, urine creatinine Dr. Saravia for JUAN JOSE on CKD versus JUAN JOSE Ultrasound renal Trend renal function Full code SCD for DVT prophylaxis No GI prophylaxis needed Diabetic renal diet Plan discussed with: Patient Problems List: (1) Cellulitis of left lower extremity Status: Acute Date of Service: Feb 09, 2024 Billing Provider: FELIZ NGO MD Common Visit Codes: [id number] INP/OBS CARE (HIGH) FELIZ NGO MD Feb 09, 2024 17:00
[2024-02-09] MEDS ORDERED: PIPERACILLIN-TAZOB 3.375GM 100 ML IV SCH (17:30)
--- NOTE | 2024-02-09 17:33 | DVH ---
INDICATION: pete on ckd vs pete TECHNIQUE: Multiple real-time sonographic images of the kidneys and bladder were obtained. COMPARISON: None FINDINGS: The right kidney measures 10 cm in length, which is normal in size. There is normal echogenicity of t he right kidney. No hydronephrosis. The left kidney measures 11.7 cm in length, which is normal in size. There is normal echogenicity of the left kidney. No hydronephrosis. No large intraluminal masses are seen in the bladder. Prior to voiding the bladder volume measures volume 568 cc. No postvoid images were obtained. IMPRESSION: Normal sonographic appearance of the kidneys. Asymmetrically enlarged left kidney. No hydronephrosis.
[2024-02-09] MEDS ORDERED: VANCOMYCIN PER PHARMACY 0 MG IV SCH (18:15)
[2024-02-09 19:11] LABS: INR 1.07 (0.9-1.15); Prothrombin Time 11.3 sec (9.3-11.8)
[2024-02-09 19:19] LABS: Erythrocyte Sedimentation Rate 83 mm/hr (0-20)
[2024-02-09] MEDS: ACCU-CHEK COMFORT CURVE STRIP VI SCH (20:12)
[2024-02-09] MEDS: InsuLIN REG 1unit/0.01ml Soln (100units/ml) SC SCH ×2 (20:12→22:00)
[2024-02-09] MEDS: PIPERACILLIN-TAZOB 3.375GM 100 ML IV ONE (20:25)
[2024-02-09] MEDS: VANCOMYCIN 1GM/250ML KIT 250 ML IV SCH (21:00)
[2024-02-09] MEDS: PIPERACILLIN-TAZOB 3.375GM 100 ML IV SCH (22:00)
[2024-02-09] MEDS: SODIUM CHLOR 0.9% PF (SALINE LOCK) 10ML VIAL/SYR IV SCH (22:26)
[2024-02-09 23:00] VITALS: BP 160/74; PULSE 87; RESP 20; TEMP 98.5; O2SAT 98
[2024-02-09] MEDS: LACTATED RINGER'S 1,000 ML IV ONE (23:35)
[2024-02-10] MEDS ORDERED: METF-370 PO (00:40)
[2024-02-10] MEDS ORDERED: LISI30TA8 PO (00:40)
[2024-02-10] MEDS ORDERED: ASCO500T11 PO (00:40)
[2024-02-10] MEDS ORDERED: ZINC50TA7 PO (00:40)
[2024-02-10] MEDS ORDERED: HYDR25TA5 PO (00:40)
[2024-02-10] MEDS ORDERED: ATOR10TA52 PO (00:40)
[2024-02-10 04:06] VITALS: BP 160/74; PULSE 83; RESP 20; TEMP 98.2; O2SAT 98
[2024-02-10 04:15] LABS: Chloride 102 mmol/L (98-107); Potassium 3.9 mmol/L (3.5-5.1)
[2024-02-10 04:16] LABS: Anion Gap 7 (5-15); Carbon Dioxide 25 mmol/L (20-31)
[2024-02-10 04:17] LABS: Calcium 9.2 mg/dL (8.7-10.4)
[2024-02-10 04:21] LABS: BUN/Creatinine Ratio 25.9 (10.0-20.0)
[2024-02-10 04:24] LABS: Blood Urea Nitrogen 29 mg/dL (9-23); Glucose 229 mg/dL (74-106); Sodium 134 mmol/L (136-145)
--- NOTE | 2024-02-10 08:02 | DVH ---
CLINICAL HISTORY: Infection/suspected osteomyelitis in the 5th digit of the left foot. TECHNIQUE: Multi sequence multi planar MRI images of the left midfoot and forefoot were obtained wit hout IV contrast. COMPARISON: CT L FOOT WO CONTRAST on DOS: 05/29/21. Radiographs dated 02/09/2024. FINDINGS: Postsurgical changes of prior resection of the distal aspect of the left 5th metatarsal. T here is a wound at the dorsal aspect of the forefoot near the level of the mid to distal 3rd and 4th metatarsals, measuring up to 0.9 x 4.8 cm with extensive subcutaneous edema and locules of gas along the dorsal lateral aspect of the midfoot and forefoot near the 5th metatarsal resection site, with mo re focal complex fluid collection dorsal to the mid to distal aspect of the 5th metatarsal measuring up to 4.9 cm in greatest AP dimension, 2.7 cm in greatest transverse dimension, and 3.3 cm in greates t craniocaudal dimension, possible abscess. There is prominent T2 hyperintense signal and T1 hypointe nse signal in the 5th metatarsal amputation stump and extending back to the junction of the base and proximal shaft of the 5th metatarsal, suspected osteomyelitis. No definite osteomyelitis visualized i n the 5th digit phalanges. No other evidence for osteomyelitis. IMPRESSION: 1. Wound at the dorsal aspect of the forefoot with adjacent soft tissue inflammatory changes, likely cellulitis and complex fluid collection along the dorsal aspect of the 5th metatarsal, suspected absc ess, although limited evaluation for abscess on noncontrast enhanced exam. 2. Marrow edema in the 5th metatarsal amputation stump and extending to the junction of the base and proximal shaft, suspected osteomyelitis. 3. Additional findings as detailed above.
--- NOTE | 2024-02-10 10:49 | DVHINCON2 ---
Date of service: Feb 10, 2024 Reason for Consultation Acute kidney injury History of Present Illness 63-year-old morbidly obese male with medical history of hypertension, diabetes, cellulitis, hyperlipidemia. He has no previous history of kidney disease. Patient is being followed by podiatry for lower extremity cellulitis however there was noted area of blistering that if worsened. He was recommended for hospital evaluation. Nephrology consulted due to elevated creatinine level. Allergies: Coded Allergies: NO KNOWN ALLERGIES (Unverified , 05/29/21) Home Meds Reported Medications Zinc Gluconate (Zinc) 50 Mg Tab, 50 MG PO DAILY, TAB 02/10/24 Ascorbic Acid (VITAMIN C TABLET) 500 Mg Tb, 1000 MG PO DAILY, TAB 02/10/24 Atorvastatin Calcium (ATORVASTATIN CALCIUM) 10 Mg Tab, 1 TAB PO QPM 02/10/24 Hctz (Hydrochlorothiazide) 25 Mg Tab, 1 TAB PO QAM 02/10/24 Lisinopril (Lisinopril) 30 Mg Tab, 1 TAB PO DAILY 02/10/24 Metformin Hydrochloride (Metformin Hcl) 500 Mg Tab, 1 TAB PO BID 02/10/24 Current Medications Current Medications Medications (Trade) Dose Ordered Sig/Justine Route PRN Reason Start Time Stop Time Status Last Admin Piperacillin Sod/ Tazobactam Sod 100 ml @ 25 mls/hr Q8H IV 02/09/24 22:00 02/10/24 06:28 Diagnostic Test (Pha) (Accu-Chek Comfort Curve T) 1 strip ACHS 02/09/24 17:00 02/10/24 06:29 Insulin Human Regular (InsuLIN R) HS SC 02/09/24 22:00 Insulin Human Regular (InsuLIN R) AC SC 02/09/24 17:00 02/10/24 06:30 Dextrose 50 ml UD PRN IV Blood Sugar LESS THAN 60 02/09/24 17:00 Sodium Chloride (Saline Lock Ns) 10 ml Q8HR IV 02/09/24 22:00 02/10/24 06:02 Acetaminophen (Tylenol Tablet) 650 mg Q6HP PRN PO PAIN SCALE 1-3 OR TEMP>100.4 02/09/24 17:00 Acetaminophen/ Hydrocodone Bitart (Lima 5/325MG Tab) 1 tab Q4HP PRN PO MODERATE PAIN (4-6 PAIN SCALE) 02/09/24 17:00 Hydromorphone HCl (Dilaudid Injection) 0.5 mg Q4HP PRN IV SEVERE PAIN (7-10 PAIN SCALE) 02/09/24 17:00 Ondansetron HCl (Zofran) 4 mg Q4HP PRN IV NAUSEA / VOMITING 02/09/24 17:00 Piperacillin Sod/ Tazobactam Sod 100 ml @ 100 mls/hr Q6H IV 02/09/24 17:30 02/09/24 17:26 DC Vancomycin HCl 0 ml @ 0 mls/hr UD IV 02/09/24 18:15 Vancomycin HCl 250 ml @ 250 mls/hr Q12H IV 02/09/24 21:00 02/09/24 21:00 H&P Exam Vital Signs/I&O Vital Sign Date Time Temp Pulse Resp B/P (MAP) Pulse Ox O2 Delivery O2 Flow Rate FiO2 02/10/24 04:06 98.2 83 20 160/74 (102) 98 98.2 02/09/24 10:00 Room Air* 0 21 Intake and Output 02/09/24 02/10/24 19:00 07:00 Intake Total 200 ml 350 ml Balance 200 ml 350 ml Intake IV Total 200 ml 350 ml Physical Exam Elderly male Nonacute distress Abdomen is soft left foot dressing Labs/Diagnostic Data Labs/Diagnostic Data Laboratory Tests Test 02/10/24 03:40 02/09/24 18:38 02/09/24 09:50 Range/Units Sodium Level 134 L 133 L 136-145 mmol/L Potassium Level 3.9 4.6 3.5-5.1 mmol/L Chloride Level 102 100 98-107 mmol/L Carbon Dioxide Level 25 26 20-31 mmol/L Anion Gap 7 7 5-15 Blood Urea Nitrogen 29 H 32 H 9-23 mg/dL Creatinine 1.12 1.40 H 1.61 H 0.700-1.30 mg/dL Glomerular Filtration Rate Calc 74 57 48 >90 mL/min BUN/Creatinine Ratio 25.9 H 19.9 10.0-20.0 Serum Glucose 229 H 306 H 74-106 mg/dL Calcium Level 9.2 9.7 8.7-10.4 mg/dL Prothrombin Time 11.3 9.3-11.8 sec Prothrombin Time INR 1.07 0.9-1.15 White Blood Count 15.6 H 4.4-10.8 10^3/uL Red Blood Count 4.28 L 4.5-5.90 10^6/uL Hemoglobin 12.5 L 13.5-17.5 g/dL Hematocrit 37.3 L 41.0-53.0 % Mean Corpuscular Volume 87.2 80.0-100.0 fL Mean Corpuscular Hemoglobin 29.1 28.0-32.0 pg Mean Corpuscular Hemoglobin Concent 33.4 32.0-36.0 g/dL Red Cell Distribution Width 13.8 11.8-14.3 % Platelet Count 211 140-450 10^3/uL Mean Platelet Volume 8.4 6.9-10.8 fL Neutrophils (%) (Auto) 81.9 H 37.0-80.0 % Lymphocytes (%) (Auto) 8.8 L 10.0-50.0 % Monocytes (%) (Auto) 8.7 0.0-12.0 % Eosinophils (%) (Auto) 0.5 0.0-7.0 % Basophils (%) (Auto) 0.1 0.0-2.0 % Neutrophils # (Auto) 12.8 H 1.6-8.6 10 ^3/uL Lymphocytes # (Auto) 1.4 0.4-5.4 10 ^3/uL Monocytes # (Auto) 1.4 H 0-1.3 10 ^3/uL Eosinophils # (Auto) 0.1 0-0.8 10 ^3/uL Basophils # (Auto) 0 0-0.2 10 ^3/uL Nucleated Red Blood Cells 0.0 % Erythrocyte Sedimentation Rate 83 H 0-20 mm/hr Hemoglobin A1c 9.3 H <5.7 % A1C Lactic Acid Level 1.4 0.4-2.0 mmol/L C-Reactive Protein High Sensitivity 16.53 H <1.0 mg/dL Assessment Acute kidney injury hemodynamically mediated No previous history of kidney disease Hypertension Diabetes Sepsis secondary to cellulitis rule out osteomyelitis BP -home medications include lisinopril, hydrochlorothiazide. We will resume lisinopril today. Hold hydrochlorothiazide. Start carvedilol p.o. b.i.d.. If renal function is stable tomorrow then we will resume thiazide diuretic. Avoid hypotension Obtain urinalysis and obtain urine protein creatinine ratio to rule out proteinuria Continue with diabetic management Antibiotics per primary team Inpatient glycemic management currently we insulin, metformin on hold however can resume if renal function remains stable. Podiatry Patient going for MRI of the foot. Rest of care as per primary medical team include his diet to be low carbon low- sodium Plan discussed with: Patient NEO SCHREIBER MD Feb 10, 2024 10:49
[2024-02-10] MEDS: CARVEDILOL 12.5 MG TAB PO SCH (13:36)
[2024-02-10] MEDS: LISINOPRIL 20 MG TAB PO SCH (13:38)
--- NOTE | 2024-02-10 13:50 | DVHINCON2 ---
Date Seen: Feb 10, 2024 Reason for Consultation Left foot wound History of Present Illness 63Y M with PMHx DM presents to ED for chief complaint lt foot cellulitis [id number]. Pt states he had a blister 2 weeks ago but last night it became worse. Pt says he developed serosanguineous drainage and redness/swelling of the lt foot last night. Pt is being f/u by Dr. Corey and is scheduled for grafts later this month. However, pt was told by Dr. Corey to come to the ED if blisters worsened. Past Medical History See H&P Past Surgical History See H&P Allergies: Coded Allergies: NO KNOWN ALLERGIES (Unverified , 05/29/21) Home Meds Reported Medications Zinc Gluconate (Zinc) 50 Mg Tab, 50 MG PO DAILY, TAB 02/10/24 Ascorbic Acid (VITAMIN C TABLET) 500 Mg Tb, 1000 MG PO DAILY, TAB 02/10/24 Atorvastatin Calcium (ATORVASTATIN CALCIUM) 10 Mg Tab, 1 TAB PO QPM 02/10/24 Hctz (Hydrochlorothiazide) 25 Mg Tab, 1 TAB PO QAM 02/10/24 Lisinopril (Lisinopril) 30 Mg Tab, 1 TAB PO DAILY 02/10/24 Metformin Hydrochloride (Metformin Hcl) 500 Mg Tab, 1 TAB PO BID 02/10/24 Current Medications Current Medications Medications (Trade) Dose Ordered Sig/Justine Route PRN Reason Start Time Stop Time Status Last Admin Piperacillin Sod/ Tazobactam Sod 100 ml @ 25 mls/hr Q8H IV 02/09/24 22:00 02/10/24 06:28 Diagnostic Test (Pha) (Accu-Chek Comfort Curve T) 1 strip ACHS 02/09/24 17:00 02/10/24 11:30 Insulin Human Regular (InsuLIN R) HS SC 02/09/24 22:00 Insulin Human Regular (InsuLIN R) AC SC 02/09/24 17:00 02/10/24 12:50 Dextrose 50 ml UD PRN IV Blood Sugar LESS THAN 60 02/09/24 17:00 Sodium Chloride (Saline Lock Ns) 10 ml Q8HR IV 02/09/24 22:00 02/10/24 13:39 Acetaminophen (Tylenol Tablet) 650 mg Q6HP PRN PO PAIN SCALE 1-3 OR TEMP>100.4 02/09/24 17:00 Acetaminophen/ Hydrocodone Bitart ([place] 5/325MG Tab) 1 tab Q4HP PRN PO MODERATE PAIN (4-6 PAIN SCALE) 02/09/24 17:00 Hydromorphone HCl (Dilaudid Injection) 0.5 mg Q4HP PRN IV SEVERE PAIN (7-10 PAIN SCALE) 02/09/24 17:00 Ondansetron HCl (Zofran) 4 mg Q4HP PRN IV NAUSEA / VOMITING 02/09/24 17:00 Piperacillin Sod/ Tazobactam Sod 100 ml @ 100 mls/hr Q6H IV 02/09/24 17:30 02/09/24 17:26 DC Vancomycin HCl 0 ml @ 0 mls/hr UD IV 02/09/24 18:15 Vancomycin HCl 250 ml @ 250 mls/hr Q12H IV 02/09/24 21:00 02/10/24 10:58 Lisinopril (Zestril Tablet) 20 mg DAILY PO 02/10/24 10:45 02/10/24 13:38 Carvedilol (Coreg Tablet) 12.5 mg Q12HR PO 02/10/24 10:45 02/10/24 13:36 Vital Signs Vital Signs Date Time Temp Pulse Resp B/P (MAP) Pulse Ox O2 Delivery O2 Flow Rate FiO2 02/10/24 13:38 152/67 02/10/24 13:36 81 02/10/24 04:06 98.2 20 98 98.2 02/09/24 10:00 Room Air* 0 21 Physical Exam DERMATOLOGIC EXAM: - Skin is dry and cool to the touch dry bilaterally. - Nails 1-5 of the bilateral foot are thickened, discolored, dystrophic, and tender to palpate with subungual debris - Hair loss noted to bilateral feet Wound #1: Location: Left lateral foot Measurements: Length 1.5 cm x width 1.5 cm x depth 1 cm. Wound margins: Hyperkeratotic. Wound base: Full thickness. General Appearance: Necrotic Probes to Bone: Yes Purulent drainage: Yes Serous drainage: No Erythema: Present VASCULAR EXAM: - DP and PT pulses are palpable bilaterally. 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 - Feet are cool to touch compared to lower legs bilaterally. NEUROLOGIC EXAM: - Normal light touch sensation to the superficial peroneal, deep peroneal, sural, saphenous, and tibial nerve branches. - Protective sensation is diminished as tested with a 5.07 10g [place]at bilaterally. MUSCULOSKELETAL EXAM: - No gross deformities - Muscle strength is 5/5 and active motion is pain-free and symmetrical bilaterally - No pain or crepitation with passive range of motion bilaterally to all major pedal joints Labs/Diagnostic Data Labs Test 02/10/24 03:40 02/09/24 18:38 02/09/24 09:50 Range/Units Sodium Level 134 L 136-145 mmol/L Potassium Level 3.9 3.5-5.1 mmol/L Chloride Level 102 98-107 mmol/L Carbon Dioxide Level 25 20-31 mmol/L Anion Gap 7 5-15 Blood Urea Nitrogen 29 H 9-23 mg/dL Creatinine 1.12 0.700-1.30 mg/dL Glomerular Filtration Rate Calc 74 >90 mL/min BUN/Creatinine Ratio 25.9 H 10.0-20.0 Serum Glucose 229 H 74-106 mg/dL Calcium Level 9.2 8.7-10.4 mg/dL Prothrombin Time 11.3 9.3-11.8 sec Prothrombin Time INR 1.07 0.9-1.15 White Blood Count 15.6 H 4.4-10.8 10^3/uL Red Blood Count 4.28 L 4.5-5.90 10^6/uL Hemoglobin 12.5 L 13.5-17.5 g/dL Hematocrit 37.3 L 41.0-53.0 % Mean Corpuscular Volume 87.2 80.0-100.0 fL Mean Corpuscular Hemoglobin 29.1 28.0-32.0 pg Mean Corpuscular Hemoglobin Concent 33.4 32.0-36.0 g/dL Red Cell Distribution Width 13.8 11.8-14.3 % Platelet Count 211 140-450 10^3/uL Mean Platelet Volume 8.4 6.9-10.8 fL Neutrophils (%) (Auto) 81.9 H 37.0-80.0 % Lymphocytes (%) (Auto) 8.8 L 10.0-50.0 % Monocytes (%) (Auto) 8.7 0.0-12.0 % Eosinophils (%) (Auto) 0.5 0.0-7.0 % Basophils (%) (Auto) 0.1 0.0-2.0 % Neutrophils # (Auto) 12.8 H 1.6-8.6 10 ^3/uL Lymphocytes # (Auto) 1.4 0.4-5.4 10 ^3/uL Monocytes # (Auto) 1.4 H 0-1.3 10 ^3/uL Eosinophils # (Auto) 0.1 0-0.8 10 ^3/uL Basophils # (Auto) 0 0-0.2 10 ^3/uL Nucleated Red Blood Cells 0.0 % Erythrocyte Sedimentation Rate 83 H 0-20 mm/hr Hemoglobin A1c 9.3 H <5.7 % A1C Lactic Acid Level 1.4 0.4-2.0 mmol/L C-Reactive Protein High Sensitivity 16.53 H <1.0 mg/dL Microbiology Date/Time Source Procedure Growth Status 02/09/24 09:50 Blood Blood Culture - Preliminary NO GROWTH AFTER 24 HOURS OF INCUBATION. Resulted Assessment ASSESSMENT: Patient is a 63-year-old male seen on floor for a worsening left foot wound PLAN: - The patients chart was reviewed, clinical findings were discussed with the patient, the etiologies of the conditions were discussed in detail, and a treatment plan was agreed to at this time, with both oral and written instructions provided. - reviewed MRI with the patient with concern for abscess osteomyelitis - discussed with the patient that we need to take him to the OR for an incision and drainage - we will plan to take cultures at that point - patient had recently eating so we will do an local anesthetic - patient will return to the floor after and continue antibiotic - we will take the patient to the OR again on Tuesday for another incision and drainage All questions were answered and concerns addressed to the patient's satisfaction. The patient was given the phone number to the clinic and was told how to make contact with the clinic should any concerns or questions arise. Patient understands that if any questions or concerns arise prior to the next appointment, we should be contacted immediately. FOLLOW-UP: Continue to follow while inpatient Problems(with codes): (1) Necrotizing fasciitis (2) Leukocytosis (3) Sepsis (4) DKA (diabetic ketoacidosis) (5) Foot abscess, left (6) Cellulitis of left lower extremity Plan discussed with: Patient Date of Service: Feb 10, 2024 Billing Provider: MUSSON,BRIAN D DPM Common Visit Codes: [id number] INP/OBS CARE (HIGH) BRIAN MUNROE DPM Feb 10, 2024 13:50
[2024-02-10 14:43] VITALS: BP 130/83; PULSE 86; RESP 17; TEMP 97.8; O2SAT 98
--- NOTE | 2024-02-10 16:00 | DVHOP2 ---
Operative Report - 2 Report Details Date: 02/10/24 Preop Diagnosis: 1. Left foot abscess 2. Left foot necrotizing fasciitis 3. Left foot cellulitis Postop Diagnosis: Same as preop Surgeon: Brian Munroe MD Anesthesiologist: None Anesthesia: Local Consent: The patient was informed of the risks and benefits of the procedure. These include but are not limited to complications of anesthesia, postoperative infection, incomplete relief of symptoms, recurrence of symptoms, damage to blood vessels, nerves and tendons, deep venous thrombosis, pulmonary embolism and possible need for repeat surgery in the future. Complications: None Estimated Blood Loss: Minimal Fluids: None Findings: Proximally 5 cc of purulent drainage as well as necrotic EDB muscle Indications for Surgery: Worsening left foot wound Name of Procedure Performed 1. Left foot I&D to bone (17448) Procedure Details Procedure Details: PRE-PROCEDURE INFORMATION: In the pre-op holding area, the extremity to be operated on was clearly marked and the patient verified correct laterality of the marking. The patient was transferred to the OR table and placed in a supine position. A timeout was performed in which identification of the correct patient, procedure, location, and materials was done. The left foot and leg were prepped and draped in normal sterile fashion. DESCRIPTION OF PROCEDURE: Attention was directed to the left where area of fluc tuance was noted. An incision was made over this area and was deepened through blunt dissection. The incision was deepened to the level of abscess and bone. Care was taken to the dissection to avoid any neurovascular and tendinous structures. The incision was deepened to the bone, and the abscess appeared to be purulent fluid consistent with pus. After the abscess was drained, the area was irrigated with 3 L normal saline using cysto tubing. Deep cultures were then obtained from the wound. The area was then inspected and any areas of tracking, especially along the tendons were also drained. The wound was packed with Betadine-soaked gauze and we will need to be closed at a later date. A dry sterile dressing was placed on the surgical extremity. The patient was placed in a postop shoe. POSTOPERATIVE INFORMATION: The patient tolerated the above noted procedure and anesthesia well and was transferred to the PACU with vital signs stable, and vascular status intact with capillary refill intact to all digits. Cultures were taken. Patient will return to the floor to continue IV antibiotics. Patient will return to the OR on Tuesday for a subsequent procedure for another incision and drainage. Condition Good Disposition Still a Patient BRIAN MUNROE DPM Feb 10, 2024 16:01
[2024-02-10 16:17] VITALS: BP 163/76; PULSE 75; RESP 18; TEMP 97.8; O2SAT 99
[2024-02-10 20:00] VITALS: PULSE 68; RESP 19; O2SAT 68
[2024-02-10 21:00] VITALS: BP 144/63; PULSE 68; RESP 19; TEMP 99; O2SAT 98
[2024-02-10 22:51] LABS: Urine Bacteria None Seen /hpf (None Seen)
[2024-02-10 23:10] LABS: Urine Blood Negative /uL (Negative); Urine Clarity Clear (Clear); Urine Color Yellow (Yellow); Urine Protein, UAD 2+ (Negative); Urine Specific Gravity 1.021 (1.001-1.035); Urine Squamous Epithelial Cell None Seen /hpf (<5); Urine Urobilinogen Normal (Negative); Urine WBC 2 /hpf (0 - 3); Urine pH 5.5 (5.0-9.0)
[2024-02-10 23:23] LABS: Protein, Urine 182.6 mg/dL (1-14)
[2024-02-10 23:26] LABS: Creatinine, Urine 121.05 mg/dL (30.0-125.0); Urine Protein/Creatinine Ratio 1.51
[2024-02-10 23:26] LABS: Creatinine, Urine 122.16 mg/dL (30.0-125.0)
--- NOTE | 2024-02-10 23:33 | DVHPN2 ---
Subjective Update 02/09 -patient is feeling improved nausea and vomiting resolving diarrhea resolved. P.o. tolerance intolerance is improving but not yet back to baseline. Patient is still feeling a little nauseous and having decreased p.o.. Abdominal pain present. Reviewed: H&P Changes from previous H/P or p: No Changes General: Per HPI Objective Vitals Vital Signs Date Time Temp Pulse Resp B/P (MAP) Pulse Ox O2 Delivery O2 Flow Rate FiO2 02/10/24 22:04 68 144/63 02/10/24 21:00 99.0 19 98 99.0 02/10/24 20:00 Room Air* 0 21 Intake/Output Intake and Output 02/10/24 07:00 Intake Total 550 ml Balance 550 ml IV Total 550 ml Exam GEN: Healthy appearing, well-developed, NAD. HEENT: NC/AT; MMM. CV: RRR, no m/r/g. LUNGS: CTAB, no w/r/c. ABD: Mild tenderness to palpation in epigastrium EXT: skin Warm, well perfused. no rashes. No clubbing, cyanosis, or edema. NEURO: Ambulating with no limitations. No focal deficits. Medications Current Medications Medications Dose Ordered Sig/Justine Route Start Time Stop Time Status Last Admin Dose Admin Piperacillin Sod/ Tazobactam Sod 100 ml @ 25 mls/hr Q8H IV 02/09/24 22:00 02/10/24 17:40 25 MLS/HR Diagnostic Test (Pha) 1 strip ACHS 02/09/24 17:00 02/10/24 22:04 1 STRIP Insulin Human Regular HS SC 02/09/24 22:00 02/10/24 22:10 6 UNITS Insulin Human Regular AC SC 02/09/24 17:00 02/10/24 17:40 6 UNITS Dextrose 50 ml UD PRN IV 02/09/24 17:00 Sodium Chloride 10 ml Q8HR IV 02/09/24 22:00 02/10/24 21:56 10 ML Acetaminophen 650 mg Q6HP PRN PO 02/09/24 17:00 Acetaminophen/ Hydrocodone Bitart 1 tab Q4HP PRN PO 02/09/24 17:00 Hydromorphone HCl 0.5 mg Q4HP PRN IV 02/09/24 17:00 Ondansetron HCl 4 mg Q4HP PRN IV 02/09/24 17:00 Vancomycin HCl 0 ml @ 0 mls/hr UD IV 02/09/24 18:15 Vancomycin HCl 250 ml @ 250 mls/hr Q12H IV 02/09/24 21:00 02/10/24 21:00 250 MLS/HR Lisinopril 20 mg DAILY PO 02/10/24 10:45 02/10/24 13:38 20 MG Carvedilol 12.5 mg Q12HR PO 02/10/24 10:45 02/10/24 22:04 12.5 MG Laboratory Results Laboratory Tests 02/09/24 09:50 02/10/24 03:40 Chemistry Test 02/10/24 03:40 Calcium Level 9.2 mg/dL (8.7-10.4) Urinalysis Test 02/09/24 22:20 02/10/24 22:20 Urine Sodium 66 mmol/L (40-220) Urine Color Yellow (Yellow) Urine Clarity Clear (Clear) Urine pH 5.5 (5.0-9.0) Urine Specific [place] 1.021 (1.001-1.035) Urine Protein 2+ (Negative) H Urine Ketones Negative (Negative) Urine Blood Negative /uL (Negative) Urine Nitrite Negative (Negative) Urine Bilirubin Negative (Negative) Urine Urobilinogen Normal mg/dL (Negative) Urine Leukocyte Esterase Negative /uL (Negative) Urine RBC 3 /hpf (0 - 3) Urine WBC 2 /hpf (0 - 3) Urine Squamous Epithelial Cells None seen /hpf (<5) Urine Bacteria None seen /hpf (None Seen) Urine Creatinine Pending Urine Protein/Creatinine Ratio Pending Urine Glucose 3+ mg/dL (Normal) H Urine Total Protein Pending Microbiology Microbiology Date/Time Source Procedure Growth Status 02/09/24 09:50 Blood Blood Culture - Preliminary NO GROWTH AFTER 24 HOURS OF INCUBATION. Resulted Labs and/or images reviewed: Labs reviewed by me, Image(s) reviewed by me Assessment/Plan Assessment/Plan Update 02/09 -patient is feeling improved nausea and vomiting resolving diarrhea resolved. P.o. tolerance intolerance is improving but not yet back to baseline. Patient is still feeling a little nauseous and having decreased p.o.. Abdominal pain present. # intractable abdominal pain # intractable nausea and vomiting # diarrhea # acute colitis # intravascular volume depletion -patient presenting with nausea and vomiting and diarrhea. Recent onset. He recently went out with his family to a mall after new year's. It. -on vitals patient is tachycardic has leukocytosis and neutrophilia all this concerning of sirs. -patient's urine is suggestive of intravascular volume depletion, UA SG 1.021 -CT abdomen with concern for pancolitis. -differential: This could be acute viral versus bacterial colitis gastroenteritis. -status post IV fluids -continue IV antibiotics ceftriaxone and Flagyl -continue PPI IV daily -continue IV fluids maintenance -p.r.n. Zofran. # hypertension continue home meds # history CVA with residual right side weakness-continue home meds # hypothyroidism-continue home meds # GERD-continue IV PPI daily Diet CLD DVT prophylaxis patient ambulating GI prophylaxis PPI 40 IV daily Med surge Full code Plan discussed with: Patient My Orders Orders - BONITA CABRERA MD Procedure Category Date Status Time Cleanse Wound With FRANCES 02/10/24 In Process Wound Clean 10:00 * Dietary Consult CONS 02/10/24 Transmitted 14:24 Date of Service: Feb 10, 2024 Billing Provider: BONITA CABRERA MD Common Visit Codes: [id number] DISCH DAY >30min BONITA CABRERA MD Feb 10, 2024 23:33
[2024-02-11] VITALS (8 sets, daily range): BP systolic 120–137; BP diastolic 53–65; PULSE 62–71; RESP 17–22; TEMP 97.8–98.7; O2SAT 96–97
[2024-02-11 05:54] LABS: Basophils # (auto) 0 10 ^3/uL (0-0.2); Basophils % (auto) 0.5 % (0.0-2.0); Eosinophils # (auto) 0.6 10 ^3/uL (0-0.8); Eosinophils % (auto) 5.7 % (0.0-7.0); Hematocrit 32.6 % (41.0-53.0); Hemoglobin 11.4 g/dL (13.5-17.5); Lymphocytes # (auto) 1.5 10 ^3/uL (0.4-5.4); Lymphocytes % (auto) 15.2 % (10.0-50.0); Mean Corpuscular Hemoglobin 30.1 pg (28.0-32.0); Mean Corpuscular Hgb Conc. 35.1 g/dL (32.0-36.0); Mean Corpuscular Volume 85.8 fL (80.0-100.0); Monocytes # (auto) 0.9 10 ^3/uL (0-1.3); Monocytes % (auto) 9.4 % (0.0-12.0); Neutrophils # (auto) 6.9 10 ^3/uL (1.6-8.6); Neutrophils % (auto) 69.2 % (37.0-80.0); Platelet Count (auto) 214 10^3/uL (140-450); Red Blood Cells 3.79 10^6/uL (4.5-5.90); Red Cell Distribution Width 13.6 % (11.8-14.3); White Blood Cell 9.9 10^3/uL (4.4-10.8)
[2024-02-11 06:03] LABS: Calcium 9.2 mg/dL (8.7-10.4); Chloride 102 mmol/L (98-107)
[2024-02-11 06:04] LABS: Anion Gap 7 (5-15); Carbon Dioxide 25 mmol/L (20-31)
[2024-02-11 06:10] LABS: BUN/Creatinine Ratio 19.2 (10.0-20.0); Blood Urea Nitrogen 23 mg/dL (9-23); Glucose 202 mg/dL (74-106); Sodium 134 mmol/L (136-145)
--- NOTE | 2024-02-11 18:51 | DVHPN2 ---
Progress Note Date Seen: Feb 11, 2024 Medical Necessity Reason Pt with a Central, PICC or Fol: No Subjective Review of Systems: Deferred Objective vital signs Vital Sign Date Time Temp Pulse Resp B/P (MAP) Pulse Ox O2 Delivery O2 Flow Rate FiO2 02/11/24 17:07 98.4 67 17 120/53 (75) 97 98.4 02/11/24 08:00 Room Air* 0 21 Total Intake and Output 02/10/24 02/10/24 02/11/24 15:00 23:00 07:00 Intake Total 650 ml 500 ml Output Total 750 ml Balance 650 ml -250 ml medications Current Medications Medications Dose Ordered Sig/Justine Route Start Time Stop Time Status Last Admin Dose Admin Piperacillin Sod/ Tazobactam Sod 100 ml @ 25 mls/hr Q8H IV 02/09/24 22:00 02/11/24 14:58 25 MLS/HR Diagnostic Test (Pha) 1 strip ACHS 02/09/24 17:00 02/11/24 16:57 1 STRIP Insulin Human Regular HS SC 02/09/24 22:00 02/10/24 22:10 6 UNITS Insulin Human Regular AC SC 02/09/24 17:00 02/11/24 16:57 9 UNITS Dextrose 50 ml UD PRN IV 02/09/24 17:00 Sodium Chloride 10 ml Q8HR IV 02/09/24 22:00 02/11/24 12:16 10 ML Acetaminophen 650 mg Q6HP PRN PO 02/09/24 17:00 Acetaminophen/ Hydrocodone Bitart 1 tab Q4HP PRN PO 02/09/24 17:00 Hydromorphone HCl 0.5 mg Q4HP PRN IV 02/09/24 17:00 Ondansetron HCl 4 mg Q4HP PRN IV 02/09/24 17:00 Vancomycin HCl 0 ml @ 0 mls/hr UD IV 02/09/24 18:15 Vancomycin HCl 250 ml @ 250 mls/hr Q12H IV 02/09/24 21:00 02/11/24 09:18 250 MLS/HR Lisinopril 20 mg DAILY PO 02/10/24 10:45 02/11/24 09:17 20 MG Carvedilol 12.5 mg Q12HR PO 02/10/24 10:45 02/11/24 09:18 12.5 MG Examination: GENERAL:Normal, LUNGS:Normal, CVS:Normal, SKIN:Abnormal laboratory and microbiology Laboratory Tests 02/11/24 05:19 Test 02/11/24 05:19 Range/Units Serum Glucose 202 H 74-106 mg/dL Microbiology Date/Time Source Procedure Growth Status 02/10/24 15:46 Foot Left Gram Stain - Final Resulted 02/10/24 15:46 Foot Left Anaerobic Culture - Preliminary Resulted 02/10/24 15:46 Foot Left Aerobic Culture - Preliminary Resulted 02/09/24 09:50 Blood Blood Culture - Preliminary NO GROWTH AFTER 48 HOURS OF INCUBATION. Resulted Problem List/Assessment/Plan Problem List/Assessment/Plan Acute kidney injury hemodynamically mediated No previous history of kidney disease Hypertension Diabetes Sepsis secondary to osteomyelitis proteinuria 1.5gm BP -home medications include lisinopril, hydrochlorothiazide continue lisinopril Hold hydrochlorothiazide. continue carvedilol p.o. b.i.d.. BP better today can defer thiazide diuretic to later time if needs better BP control or develops swelling Continue with diabetic management Antibiotics per primary team Inpatient glycemic management currently we insulin, metformin on hold however can resume if renal function remains stable. Podiatry Rest of care as per primary medical team include his diet to be low carbon low- sodium Plan discussed with: Patient NEO SCHREIBER MD Feb 11, 2024 18:51
--- NOTE | 2024-02-11 20:48 | DVHPN2 ---
Subjective Update 02/10 - feeling well. febrile. pain control w prn analgesics. planned for OR again on tuesday. pending cultures . will likely need treatment residential for osteomyelitis with iv abx. 02/09 -Patient present in room after intervention from Podiatry. Patient has been suffering from worsening left foot recurrent infection. Status post podiatry intervention, patient is feeling well pain is controlled. Reviewed: H&P Changes from previous H/P or p: No Changes General: Per HPI Objective Vitals Vital Signs Date Time Temp Pulse Resp B/P (MAP) Pulse Ox O2 Delivery O2 Flow Rate FiO2 02/11/24 17:07 98.4 67 17 120/53 (75) 97 98.4 02/11/24 08:00 Room Air* 0 21 Intake/Output Intake and Output 02/11/24 07:00 Intake Total 1150 ml Output Total 750 ml Balance 400 ml Intake Oral 800 ml IV Total 350 ml Output Urine Total 750 ml # Voids 1 Exam GEN: Healthy appearing, well-developed, NAD. HEENT: NC/AT; MMM. CV: RRR, no m/r/g. LUNGS: CTAB, no w/r/c. ABD: Soft, NT/ND, NBS, no masses or organomegaly. EXT: Left foot wrapped in dressing. Dressing is CDI. Patient has decreased sensation in feet bilaterally. NEURO: Ambulating with no limitations. No focal deficits. Medications Current Medications Medications Dose Ordered Sig/Justine Route Start Time Stop Time Status Last Admin Dose Admin Piperacillin Sod/ Tazobactam Sod 100 ml @ 25 mls/hr Q8H IV 02/09/24 22:00 02/11/24 14:58 25 MLS/HR Diagnostic Test (Pha) 1 strip ACHS 02/09/24 17:00 02/11/24 16:57 1 STRIP Insulin Human Regular HS SC 02/09/24 22:00 02/10/24 22:10 6 UNITS Insulin Human Regular AC SC 02/09/24 17:00 02/11/24 16:57 9 UNITS Dextrose 50 ml UD PRN IV 02/09/24 17:00 Sodium Chloride 10 ml Q8HR IV 02/09/24 22:00 02/11/24 12:16 10 ML Acetaminophen 650 mg Q6HP PRN PO 02/09/24 17:00 Acetaminophen/ Hydrocodone Bitart 1 tab Q4HP PRN PO 02/09/24 17:00 Hydromorphone HCl 0.5 mg Q4HP PRN IV 02/09/24 17:00 Ondansetron HCl 4 mg Q4HP PRN IV 02/09/24 17:00 Vancomycin HCl 0 ml @ 0 mls/hr UD IV 02/09/24 18:15 Vancomycin HCl 250 ml @ 250 mls/hr Q12H IV 02/09/24 21:00 02/11/24 09:18 250 MLS/HR Lisinopril 20 mg DAILY PO 02/10/24 10:45 02/11/24 09:17 20 MG Carvedilol 12.5 mg Q12HR PO 02/10/24 10:45 02/11/24 09:18 12.5 MG Laboratory Results Laboratory Tests 02/11/24 05:19 Chemistry Test 02/11/24 05:19 Calcium Level 9.2 mg/dL (8.7-10.4) Urinalysis Test 02/09/24 22:20 02/10/24 22:20 Urine Sodium 66 mmol/L (40-220) Urine Color Yellow (Yellow) Urine Clarity Clear (Clear) Urine pH 5.5 (5.0-9.0) Urine Specific [place] 1.021 (1.001-1.035) Urine Protein 2+ (Negative) H Urine Ketones Negative (Negative) Urine Blood Negative /uL (Negative) Urine Nitrite Negative (Negative) Urine Bilirubin Negative (Negative) Urine Urobilinogen Normal mg/dL (Negative) Urine Leukocyte Esterase Negative /uL (Negative) Urine RBC 3 /hpf (0 - 3) Urine WBC 2 /hpf (0 - 3) Urine Squamous Epithelial Cells None seen /hpf (<5) Urine Bacteria None seen /hpf (None Seen) Urine Creatinine 121.05 mg/dL (30.0-125.0) Urine Protein/Creatinine Ratio 1.51 Urine Glucose 3+ mg/dL (Normal) H Urine Total Protein 182.6 mg/dL (1-14) H Microbiology Microbiology Date/Time Source Procedure Growth Status 02/10/24 15:46 Foot Left Gram Stain - Final Resulted 02/10/24 15:46 Foot Left Anaerobic Culture - Preliminary Resulted 02/10/24 15:46 Foot Left Aerobic Culture - Preliminary Resulted 02/09/24 09:50 Blood Blood Culture - Preliminary NO GROWTH AFTER 48 HOURS OF INCUBATION. Resulted Labs and/or images reviewed: Labs reviewed by me, Image(s) reviewed by me Assessment/Plan Assessment/Plan Update 02/10 - feeling well. febrile. pain control w prn analgesics. planned for OR again on tuesday. pending cultures . 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 # left foot cellulitis # left foot abscess # left foot osteomyelitis # leukocytosis problem insert neutrophilia -patient presenting with acute worsening of left foot with drainage that is serosanguineous.- -on admit patient has leukocytosis, neutrophilia, elevated ESR CRP. Patient is started on broad-spectrum antibiotics and Podiatry consulted MRI imaging shows concern for cellulitis, abscess and osteomyelitis in affected foot. --started on empiric broad-spectrum antibiotics vancomycin/Zosyn -status post IV fluid hydration -diabetic diet -p.r.n. for pain control -podiatry consulted and following # diabetes-continue mild SSI with Accu-Cheks a.c. HS --continue home meds Diet diabetic DVT prophylaxis Lovenox subQ GI prophylaxis tolerate diet, ppi daily IV Med surge Full code Plan discussed with: Patient Date of Service: Feb 11, 2024 Billing Provider: BONITA CABRERA MD Common Visit Codes: [id number] INP/OBS CARE(HIGH) BONITA CABRERA MD Feb 11, 2024 20:48
[2024-02-12 01:00] VITALS: BP 132/59; PULSE 66; RESP 17; TEMP 98.1; O2SAT 97
[2024-02-12 05:00] VITALS: BP 149/68; PULSE 68; RESP 17; TEMP 98.2; O2SAT 96
[2024-02-12 05:42] LABS: Basophils # (auto) 0.1 10 ^3/uL (0-0.2); Basophils % (auto) 0.6 % (0.0-2.0); Eosinophils # (auto) 0.6 10 ^3/uL (0-0.8); Eosinophils % (auto) 6.5 % (0.0-7.0); Hematocrit 32.4 % (41.0-53.0); Hemoglobin 11.4 g/dL (13.5-17.5); Lymphocytes # (auto) 1.6 10 ^3/uL (0.4-5.4); Lymphocytes % (auto) 17.1 % (10.0-50.0); Mean Corpuscular Hemoglobin 30.1 pg (28.0-32.0); Mean Corpuscular Hgb Conc. 35.2 g/dL (32.0-36.0); Mean Corpuscular Volume 85.5 fL (80.0-100.0); Monocytes # (auto) 0.9 10 ^3/uL (0-1.3); Monocytes % (auto) 9.9 % (0.0-12.0); Neutrophils # (auto) 6.2 10 ^3/uL (1.6-8.6); Neutrophils % (auto) 65.9 % (37.0-80.0); Platelet Count (auto) 234 10^3/uL (140-450); Red Blood Cells 3.79 10^6/uL (4.5-5.90); Red Cell Distribution Width 13.7 % (11.8-14.3); White Blood Cell 9.4 10^3/uL (4.4-10.8)
[2024-02-12 06:01] LABS: Anion Gap 5 (5-15); Carbon Dioxide 27 mmol/L (20-31); Chloride 104 mmol/L (98-107); Potassium 4.4 mmol/L (3.5-5.1)
[2024-02-12 06:02] LABS: Calcium 9.3 mg/dL (8.7-10.4)
[2024-02-12 06:07] LABS: BUN/Creatinine Ratio 13.4 (10.0-20.0); Blood Urea Nitrogen 18 mg/dL (9-23)
[2024-02-12 06:24] LABS: Glucose 255 mg/dL (74-106); Sodium 136 mmol/L (136-145)
[2024-02-12 09:00] VITALS: BP 133/53; PULSE 73; RESP 17; TEMP 97.8; O2SAT 94
--- NOTE | 2024-02-12 12:23 | DVHPN2 ---
Progress Note Date Seen: Feb 12, 2024 Medical Necessity Reason Pt with a Central, PICC or Fol: No Subjective Review of Systems: Deferred Objective vital signs Vital Sign Date Time Temp Pulse Resp B/P (MAP) Pulse Ox O2 Delivery O2 Flow Rate FiO2 02/12/24 09:15 73 133/53 02/12/24 09:00 97.8 17 94 97.8 02/12/24 08:00 Room Air* 0 21 Total Intake and Output 02/11/24 02/11/24 02/12/24 15:00 23:00 07:00 Intake Total 350 ml 1350 ml 900 ml Output Total 1400 ml 1200 ml Balance 350 ml -50 ml -300 ml medications Current Medications Medications Dose Ordered Sig/Justine Route Start Time Stop Time Status Last Admin Dose Admin Piperacillin Sod/ Tazobactam Sod 100 ml @ 25 mls/hr Q8H IV 02/09/24 22:00 02/12/24 05:56 25 MLS/HR Diagnostic Test (Pha) 1 strip ACHS 02/09/24 17:00 02/12/24 06:11 1 STRIP Insulin Human Regular HS SC 02/09/24 22:00 02/11/24 21:25 6 UNITS Insulin Human Regular AC SC 02/09/24 17:00 02/12/24 06:12 9 UNITS Dextrose 50 ml UD PRN IV 02/09/24 17:00 Sodium Chloride 10 ml Q8HR IV 02/09/24 22:00 02/12/24 05:58 10 ML Acetaminophen 650 mg Q6HP PRN PO 02/09/24 17:00 Acetaminophen/ Hydrocodone Bitart 1 tab Q4HP PRN PO 02/09/24 17:00 Hydromorphone HCl 0.5 mg Q4HP PRN IV 02/09/24 17:00 Ondansetron HCl 4 mg Q4HP PRN IV 02/09/24 17:00 Vancomycin HCl 0 ml @ 0 mls/hr UD IV 02/09/24 18:15 Vancomycin HCl 250 ml @ 250 mls/hr Q12H IV 02/09/24 21:00 02/12/24 09:04 250 MLS/HR Lisinopril 20 mg DAILY PO 02/10/24 10:45 02/12/24 09:14 20 MG Carvedilol 12.5 mg Q12HR PO 02/10/24 10:45 02/12/24 09:15 12.5 MG Lactulose 10 ml DAILYP PRN PO 02/12/24 10:00 Examination: GENERAL:Normal, CVS:Normal, SKIN:Abnormal laboratory and microbiology Laboratory Tests 02/12/24 05:10 Test 02/12/24 05:10 Range/Units Serum Glucose 255 H 74-106 mg/dL Microbiology Date/Time Source Procedure Growth Status 02/10/24 15:46 Foot Left Gram Stain - Final Resulted 02/10/24 15:46 Foot Left Anaerobic Culture - Preliminary Resulted 02/10/24 15:46 Foot Left Aerobic Culture - Preliminary Resulted 02/09/24 09:50 Blood Blood Culture - Preliminary NO GROWTH AFTER 72 HOURS OF INCUBATION. Resulted Problem List/Assessment/Plan Problem List/Assessment/Plan Acute kidney injury hemodynamically mediated No previous history of kidney disease Hypertension Diabetes Sepsis secondary to osteomyelitis proteinuria 1.5gm BP -home medications include lisinopril, hydrochlorothiazide continue lisinopril Hold hydrochlorothiazide. continue carvedilol p.o. b.i.d.. BP better today can defer thiazide diuretic to later time if needs better BP control or develops swelling rec check vancomycin level last done 02/09 Continue with diabetic management Antibiotics per primary team Inpatient glycemic management currently we insulin, metformin on hold however can resume if renal function remains stable. Podiatry possible procedure on tuesday Rest of care as per primary medical team include his diet to be low carbon low- sodium Plan discussed with: Patient NEO SCHREIBER MD Feb 12, 2024 12:23
[2024-02-12 13:00] VITALS: BP 147/63; PULSE 61; RESP 17; TEMP 98; O2SAT 96
--- NOTE | 2024-02-12 14:44 | DVHPN2 ---
Subjective Update 02/11. Was patient is doing at baseline Leonidas, comes in denies any pain or swelling on left leg. Waiting for return to OR with Podiatry tomorrow. NPO midnight. Blockages current back with MRSA. We will repeat cultures. We will need vanc for 6 months. For osteomyelitis via picc at home. 02/10 - feeling well. febrile. pain control w prn analgesics. planned for OR again on tuesday. pending cultures . will likely need treatment terminal make up operator for osteomyelitis with iv abx. 02/09 -Patient present in room after intervention from Podiatry. Patient has been suffering from worsening left foot recurrent infection. Status post podiatry intervention, patient is feeling well pain is controlled. Reviewed: H&P Changes from previous H/P or p: No Changes General: Per HPI Objective Vitals Vital Signs Date Time Temp Pulse Resp B/P (MAP) Pulse Ox O2 Delivery O2 Flow Rate FiO2 02/12/24 10:15 61 147/63 02/12/24 09:00 97.8 17 94 97.8 02/12/24 08:00 Room Air* 0 21 Intake/Output Intake and Output 02/12/24 07:00 Intake Total 2600 ml Output Total 2600 ml Balance 0 ml Intake Oral 2150 ml IV Total 450 ml Output Urine Total 2600 ml Exam GEN: Healthy appearing, well-developed, NAD. HEENT: NC/AT; MMM. CV: RRR, no m/r/g. LUNGS: CTAB, no w/r/c. ABD: Soft, NT/ND, NBS, no masses or organomegaly. EXT: Left foot wrapped in dressing. Dressing is CDI. Patient has decreased sensation in feet bilaterally. NEURO: Ambulating with no limitations. No focal deficits. Medications Current Medications Medications Dose Ordered Sig/Justine Route Start Time Stop Time Status Last Admin Dose Admin Piperacillin Sod/ Tazobactam Sod 100 ml @ 25 mls/hr Q8H IV 02/09/24 22:00 02/12/24 14:00 25 MLS/HR Diagnostic Test (Pha) 1 strip ACHS 02/09/24 17:02/12/24 11:30 1 STRIP Insulin Human Regular HS SC 02/09/24 22:00 02/11/24 21:25 6 UNITS Insulin Human Regular AC SC 02/09/24 17:02/12/24 12:29 12 UNITS Dextrose 50 ml UD PRN IV 02/09/24 17:00 Sodium Chloride 10 ml Q8HR IV 02/09/24 22:00 02/12/24 12:32 10 ML Acetaminophen 650 mg Q6HP PRN PO 02/09/24 17:00 Acetaminophen/ Hydrocodone Bitart 1 tab Q4HP PRN PO 02/09/24 17:00 Hydromorphone HCl 0.5 mg Q4HP PRN IV 02/09/24 17:00 Ondansetron HCl 4 mg Q4HP PRN IV 02/09/24 17:00 Vancomycin HCl 0 ml @ 0 mls/hr UD IV 02/09/24 18:15 Vancomycin HCl 250 ml @ 250 mls/hr Q12H IV 02/09/24 21:00 02/12/24 09:04 250 MLS/HR Lisinopril 20 mg DAILY PO 02/10/24 10:45 02/12/24 09:14 20 MG Carvedilol 12.5 mg Q12HR PO 02/10/24 10:45 02/12/24 09:15 12.5 MG Lactulose 10 ml DAILYP PRN PO 02/12/24 10:00 Laboratory Results Laboratory Tests 02/12/24 05:10 Chemistry Test 02/12/24 05:10 Calcium Level 9.3 mg/dL (8.7-10.4) Urinalysis Test 02/09/24 22:20 02/10/24 22:20 Urine Sodium 66 mmol/L (40-220) Urine Color Yellow (Yellow) Urine Clarity Clear (Clear) Urine pH 5.5 (5.0-9.0) Urine Specific [place] 1.021 (1.001-1.035) Urine Protein 2+ (Negative) H Urine Ketones Negative (Negative) Urine Blood Negative /uL (Negative) Urine Nitrite Negative (Negative) Urine Bilirubin Negative (Negative) Urine Urobilinogen Normal mg/dL (Negative) Urine Leukocyte Esterase Negative /uL (Negative) Urine RBC 3 /hpf (0 - 3) Urine WBC 2 /hpf (0 - 3) Urine Squamous Epithelial Cells None seen /hpf (<5) Urine Bacteria None seen /hpf (None Seen) Urine Creatinine 121.05 mg/dL (30.0-125.0) Urine Protein/Creatinine Ratio 1.51 Urine Glucose 3+ mg/dL (Normal) H Urine Total Protein 182.6 mg/dL (1-14) H Microbiology Microbiology Date/Time Source Procedure Growth Status 02/10/24 15:46 Foot Left Gram Stain - Final Resulted 02/10/24 15:46 Foot Left Anaerobic Culture - Preliminary Resulted 02/10/24 15:46 Aerobic Culture - Final Methicillin Resistant S.aureus Resulted 02/09/24 09:50 Blood Blood Culture - Preliminary NO GROWTH AFTER 72 HOURS OF INCUBATION. Resulted Labs and/or images reviewed: Labs reviewed by me, Image(s) reviewed by me Assessment/Plan Assessment/Plan Update 02/11. Was patient is doing at baseline Lauren, comes in denies any pain or swelling on left leg. Waiting for return to OR with Podiatry tomorrow. NPO midnight. Blockages current back with MRSA. We will repeat cultures. We will need vanc for 6 months. For osteomyelitis via picc at home. # left foot cellulitis # left foot abscess # left foot osteomyelitis # leukocytosis problem insert neutrophilia -patient presenting with acute worsening of left foot with drainage that is serosanguineous.- -on admit patient has leukocytosis, neutrophilia, elevated ESR CRP. Patient is started on broad-spectrum antibiotics and Podiatry consulted - MRI imaging shows concern for cellulitis, abscess and osteomyelitis in affected foot. - wound cx with MRSA --started on empiric broad-spectrum antibiotics vancomycin/Zosyn -status post IV fluid hydration -diabetic diet -p.r.n. for pain control - will likely need picc and 6 weeks vanco -podiatry consulted and following. NPO midnight for Tuesday return procedure possible. # Bacteremia MRSA- - bacterial cultures with MRSA, we will repeat urgency 02/11. # diabetes-continue mild SSI with Accu-Cheks a.c. HS --continue home meds Diet diabetic NPO midnight DVT prophylaxis Lovenox subQ GI prophylaxis tolerate diet, ppi daily IV Med surge Full code Plan discussed with: Patient My Orders Orders - BONITA CABRERA MD Procedure Category Date Status Time Lactulose Oral PHA 02/12/24 In Process 10:00 Blood Culture GOPAL 02/12/24 Logged 14:38 Date of Service: Feb 12, 2024 Billing Provider: BONITA CABRERA MD Common Visit Codes: [id number] INP/OBS CARE(HIGH) BONITA CABRERA MD Feb 12, 2024 14:44
[2024-02-12 17:03] VITALS: BP 115/64; PULSE 61; RESP 17; TEMP 97.9; O2SAT 94
[2024-02-12 21:00] VITALS: BP 147/64; PULSE 61; RESP 18; TEMP 98; O2SAT 99
[2024-02-12] MEDS: Juven Fruit Punch Powder PACKET 28.8gm PO SCH (21:58)
[2024-02-12] MEDS: LACTULOSE 20Gm/30ML SOLN PO PRN (21:59)
[2024-02-13] VITALS (7 sets, daily range): BP systolic 113–143; BP diastolic 57–68; PULSE 61–72; RESP 12–20; TEMP 97.7–98.4; O2SAT 96–100
[2024-02-13 06:21] LABS: INR 1.08 (0.9-1.15); Partial Thromboplastin Time 24.7 SEC (24.5-34.5); Prothrombin Time 11.4 sec (9.3-11.8)
[2024-02-13 06:32] LABS: Alanine Aminotransferase 24 U/L (7-40); Alkaline Phosphatase 97 U/L (46-116); Anion Gap 4 (5-15); Carbon Dioxide 29 mmol/L (20-31); Chloride 105 mmol/L (98-107); Potassium 4.4 mmol/L (3.5-5.1); Sodium 138 mmol/L (136-145)
[2024-02-13 06:35] LABS: Albumin 3.3 g/dL (3.2-4.8); Aspartate Aminotransferase 25 U/L (13-40); Bilirubin, Total 0.4 mg/dL (0.2-1.0); Glucose 202 mg/dL (74-106)
[2024-02-13 07:03] LABS: BUN/Creatinine Ratio 10.9 (10.0-20.0); Blood Urea Nitrogen 14 mg/dL (9-23)
[2024-02-13 07:10] LABS: Basophils # (auto) 0.1 10 ^3/uL (0-0.2); Basophils % (auto) 0.6 % (0.0-2.0); Eosinophils # (auto) 0.7 10 ^3/uL (0-0.8); Eosinophils % (auto) 7.4 % (0.0-7.0); Hemoglobin 11.1 g/dL (13.5-17.5); Lymphocytes # (auto) 1.6 10 ^3/uL (0.4-5.4); Lymphocytes % (auto) 18.2 % (10.0-50.0); Mean Corpuscular Hemoglobin 29.9 pg (28.0-32.0); Mean Corpuscular Hgb Conc. 34.7 g/dL (32.0-36.0); Monocytes # (auto) 0.7 10 ^3/uL (0-1.3); Monocytes % (auto) 8.1 % (0.0-12.0); Neutrophils # (auto) 5.9 10 ^3/uL (1.6-8.6); Neutrophils % (auto) 65.7 % (37.0-80.0); Nucleated Red Blood Cells % 0.1 %; Platelet Count (auto) 237 10^3/uL (140-450); Red Blood Cells 3.72 10^6/uL (4.5-5.90); Red Cell Distribution Width 13.5 % (11.8-14.3)
--- NOTE | 2024-02-13 07:13 | DVH ---
CLINICAL INFORMATION: 63 years old, Male; For procedure. TECHNIQUE: Single AP portable chest radiograph was obtained. COMPARISON: XY CHEST PORTABLE on DOS: 05/20/23, CHEST XRAY 1 VIEW on DOS: 05/30/21 FINDINGS: Lungs: Lung volumes with mild bibasilar atelectasis. No focal consolidation. Cardiac: Heart size is within normal limits. Pulmonary vasculature: Unremarkable. Mediastinum/german: Unremarkable. Bones: No acute osseous abnormality identified. Other: No other significant findings. IMPRESSION: No evidence of acute disease in the chest.
--- NOTE | 2024-02-13 08:21 | ECG ---
[facility] Test Date: 2024-02-13 Test Time: 04:03:59 Pat Name: OBIE WARREN Department: Respiratoy Room: 0237 A Gender: M Cash Reconciliation Specialist: Trace : 1960 Requested By: NEO SCHREIBER Order Number: [id number] Reading MD: Jeff Garrison Measurements Intervals [place] Rate: 65 P: 58 CT: 176 QRS: 1 QRSD: 95 T: 10 QT: 419 QTc: 436 Interpretive Statements Sinus rhythm Atrial premature complex Baseline wander in lead(s) V3,V4 Electronically Signed On 02-13-2024 8:58:49 PST by Jeff Garrison Please click the below link to view image of tracing.
--- NOTE | 2024-02-13 10:57 | DVHPN2 ---
Subjective 63Y M with PMHx DM presents to ED for chief complaint lt foot cellulitis [id number]. Pt states he had a blister 2 weeks ago but last night it became worse. Pt says he developed serosanguineous drainage and redness/swelling of the lt foot last night. Pt is being f/u by Dr. Corey and is scheduled for grafts later this month. However, pt was told by Dr. Corey to come to the ED if blisters worsened. Reviewed: H&P Changes from previous H/P or p: No Changes General: Per HPI Objective Vitals Vital Signs Date Time Temp Pulse Resp B/P (MAP) Pulse Ox O2 Delivery O2 Flow Rate FiO2 02/13/24 08:31 98.0 61 16 143/58 (86) 96 98.0 02/13/24 08:00 Room Air* 0 21 Intake/Output Intake and Output 02/13/24 07:00 Intake Total 3300 ml Output Total 4200 ml Balance -900 ml Intake Oral 2600 ml IV Total 700 ml Output Urine Total 4200 ml # Bowel Movements 1 Exam DERMATOLOGIC EXAM: - Skin is dry and cool to the touch dry bilaterally. - Nails 1-5 of the bilateral foot are thickened, discolored, dystrophic, and tender to palpate with subungual debris - Hair loss noted to bilateral feet Wound #1: Location: Left lateral foot Measurements: Length 1.5 cm x width 1.5 cm x depth 1 cm. Wound margins: Hyperkeratotic. Wound base: Full thickness. General Appearance: Necrotic Probes to Bone: Yes Purulent drainage: Yes Serous drainage: No Erythema: Present VASCULAR EXAM: - DP and PT pulses are palpable bilaterally. - HEAVY REPAIRER is brisk to all digits. - Feet are cool to touch compared to lower legs bilaterally. NEUROLOGIC EXAM: - Normal light touch sensation to the superficial peroneal, deep peroneal, sural, saphenous, and tibial nerve branches. - Protective sensation is diminished as tested with a 5.07 10g [place] bilaterally. MUSCULOSKELETAL EXAM: - No gross deformities - Muscle strength is 5/5 and active motion is pain-free and symmetrical bilaterally - No pain or crepitation with passive range of motion bilaterally to all major pedal joints Medications Current Medications Medications Dose Ordered Sig/Justine Route Start Time Stop Time Status Last Admin Dose Admin Diagnostic Test (Pha) 1 strip ACHS 02/09/24 17:00 02/13/24 06:08 1 STRIP Insulin Human Regular HS SC 02/09/24 22:00 02/12/24 21:47 4 UNITS Insulin Human Regular AC SC 02/09/24 17:00 02/13/24 06:16 6 UNITS Dextrose 50 ml UD PRN IV 02/09/24 17:00 Sodium Chloride 10 ml Q8HR IV 02/09/24 22:00 02/13/24 06:09 10 ML Acetaminophen 650 mg Q6HP PRN PO 02/09/24 17:00 Acetaminophen/ Hydrocodone Bitart 1 tab Q4HP PRN PO 02/09/24 17:00 Hydromorphone HCl 0.5 mg Q4HP PRN IV 02/09/24 17:00 Ondansetron HCl 4 mg Q4HP PRN IV 02/09/24 17:00 Vancomycin HCl 0 ml @ 0 mls/hr UD IV 02/09/24 18:15 Lisinopril 20 mg DAILY PO 02/10/24 10:45 02/12/24 09:14 20 MG Carvedilol 12.5 mg Q12HR PO 02/10/24 10:45 02/12/24 21:42 12.5 MG Lactulose 10 ml DAILYP PRN PO 02/12/24 10:00 02/12/24 21:59 10 ML Enteral Nutritional Formula 28.8 gm BID PO 02/12/24 22:00 Vancomycin HCl 250 ml @ 250 mls/hr Q12H IV 02/13/24 15:00 Laboratory Results Laboratory Tests 02/13/24 05:41 Chemistry Test 02/13/24 05:41 Albumin 3.3 g/dL (3.2-4.8) Calcium Level 9.0 mg/dL (8.7-10.4) Total Protein 6.0 g/dL (5.7-8.2) Coagulation Test 02/13/24 05:41 Prothrombin Time 11.4 sec (9.3-11.8) Prothrombin Time INR 1.08 (0.9-1.15) Activated Partial Thromboplast Time 24.7 SEC (24.5-34.5) LFT Test 02/13/24 05:41 Alanine Aminotransferase (ALT) 24 U/L (7-40) Alkaline Phosphatase 97 U/L (46-116) Aspartate Amino Transferase (AST) 25 U/L (13-40) Total Bilirubin 0.4 mg/dL (0.2-1.0) Urinalysis Test 02/09/24 22:20 02/10/24 22:20 Urine Sodium 66 mmol/L (40-220) Urine Color Yellow (Yellow) Urine Clarity Clear (Clear) Urine pH 5.5 (5.0-9.0) Urine Specific [place] 1.021 (1.001-1.035) Urine Protein 2+ (Negative) H Urine Ketones Negative (Negative) Urine Blood Negative /uL (Negative) Urine Nitrite Negative (Negative) Urine Bilirubin Negative (Negative) Urine Urobilinogen Normal mg/dL (Negative) Urine Leukocyte Esterase Negative /uL (Negative) Urine RBC 3 /hpf (0 - 3) Urine WBC 2 /hpf (0 - 3) Urine Squamous Epithelial Cells None seen /hpf (<5) Urine Bacteria None seen /hpf (None Seen) Urine Creatinine 121.05 mg/dL (30.0-125.0) Urine Protein/Creatinine Ratio 1.51 Urine Glucose 3+ mg/dL (Normal) H Urine Total Protein 182.6 mg/dL (1-14) H Microbiology Microbiology Date/Time Source Procedure Growth Status 02/10/24 15:46 Foot Left Gram Stain - Final Resulted 02/10/24 15:46 Foot Left Anaerobic Culture - Preliminary Resulted 02/10/24 15:46 Aerobic Culture - Final Methicillin Resistant S.aureus Resulted 02/09/24 09:50 Blood Blood Culture - Preliminary NO GROWTH AFTER 72 HOURS OF INCUBATION. Resulted Assessment/Plan Assessment/Plan ASSESSMENT: Patient is a 63-year-old male seen on floor for a worsening left foot wound, 3 day s/p I&D PLAN: - The patients chart was reviewed, clinical findings were discussed with the patient, the etiologies of the conditions were discussed in detail, and a treatment plan was agreed to at this time, with both oral and written instructions provided. - discussed with patient that surgery went well - we will take him back to the OR today for another debridement and see if we can close him up - patient will need to be NPO since midnight - depending on how the wound looks today we will close him and be able to get him discharge - continue on antibiotics All questions were answered and concerns addressed to the patient's satisfaction. The patient was given the phone number to the clinic and was told how to make contact with the clinic should any concerns or questions arise. Patient understands that if any questions or concerns arise prior to the next appointment, we should be contacted immediately. FOLLOW-UP: Continue to follow while inpatient Plan discussed with: Patient My Orders Orders - BRIAN MUNROE DPM Procedure Category Date Status Time Npo After Midnight DIET 02/12/24 Transmitted Dinner Obtain Consent For: ORDERS 02/12/24 Transmitted 14:51 Nutritional PHA 02/12/24 In Process Supplements (Flavio 22:00 Problem List: (1) Cellulitis of left lower extremity (2) Necrotizing fasciitis (3) Leukocytosis (4) Sepsis (5) DKA (diabetic ketoacidosis) (6) Foot abscess, left Date of Service: Feb 13, 2024 Billing Provider: BRIAN MUNROE DPM Common Visit Codes: [id number] INP/OBS CARE(MOD) BRIAN MUNROE DPM Feb 13, 2024 10:57
[2024-02-13] MEDS ORDERED: VANCOMYCIN HCL 1000 MG VL ONE (11:21)
[2024-02-13] MEDS ORDERED: fentaNYL CITRATE 100 MCG/2 ML VL ONE (11:29)
[2024-02-13] MEDS ORDERED: MIDAZOLAM HCL 2MG/2ML 2ml VIAL (1mg/ml) ONE (11:29)
[2024-02-13] MEDS ORDERED: PROPOFOL 10 MG/ML 20 ML IV ONE (11:32)
--- NOTE | 2024-02-13 11:48 | DVHOP2 ---
Operative Report - 2 Report Details Date: 02/13/24 Preop Diagnosis: 1. Left foot abscess 2. Left foot necrotizing fasciitis 3. Left foot cellulitis Postop Diagnosis: Same as preop Surgeon: Brian Munroe MD Anesthesiologist: See anesthesia Anesthesia: Mac Consent: The patient was informed of the risks and benefits of the procedure. These include but are not limited to complications of anesthesia, postoperative infection, incomplete relief of symptoms, recurrence of symptoms, damage to blood vessels, nerves and tendons, deep venous thrombosis, pulmonary embolism and possible need for repeat surgery in the future. Complications: None Estimated Blood Loss: Minimal Fluids: See anesthesia Findings: Consistent with diagnosis Indications for Surgery: Worsening left foot wound Name of Procedure Performed 1. Left foot I&D to bone (86096) 2. Left foot delayed closure (51031) Procedure Details Procedure Details: PRE-PROCEDURE INFORMATION: In the pre-op holding area, the extremity to be operated on was clearly marked and the patient verified correct laterality of the marking. The patient was transferred to the OR table and placed in a supine position. A timeout was performed in which identification of the correct patient, procedure, location, and materials was done. The left foot and leg were prepped and draped in normal sterile fashion. DESCRIPTION OF PROCEDURE: Attention was directed to the left foot where previous incision was made. An incision was made over this area and was deepened through blunt dissection. The incision was deepened to the level of abscess and bone. Care was taken to the dissection to avoid any neurovascular and tendinous structures. The incision was deepened to the bone, and the abscess appeared to be purulent fluid consistent with pus. After the abscess was drained, the area was irrigated with 3 L normal saline using cysto tubing. Deep cultures were then obtained from the wound. The area was then inspected and any areas of tracking, especially along the tendons were also drained. The wound was packed with Betadine-soaked gauze and we will need to be closed at a later date. A dry sterile dressing was placed on the surgical extremity. The patient was placed in a postop shoe. POSTOPERATIVE INFORMATION: The patient tolerated the above noted procedure and anesthesia well and was transferred to the PACU with vital signs stable, and vascular status intact with capillary refill intact to all digits. Patient will return to the floor to continue IV antibiotics. Patient can be discharged home 3 weeks of p.o. antibiotics. Patient will need follow up in a week. Condition Good Disposition Still a Patient BRIAN MUNROE DPM Feb 13, 2024 11:47
[2024-02-13] MEDS: VANCOMYCIN 1GM/250ML KIT 250 ML IV SCH (14:52)
--- NOTE | 2024-02-13 16:30 | DVHPN2 ---
Progress Note Date Seen: Feb 13, 2024 Medical Necessity Reason Pt with a Central, PICC or Fol: No Subjective Patient reports: Other (pt going to OR) Review of Systems: Deferred Objective vital signs Vital Sign Date Time Temp Pulse Resp B/P (MAP) Pulse Ox O2 Delivery O2 Flow Rate FiO2 02/13/24 14:00 149/60 02/13/24 13:59 62 02/13/24 12:20 14 95 02/13/24 11:50 Room Air 02/13/24 11:50 98.1 98.1 02/13/24 08:00 0 21 Total Intake and Output 02/12/24 02/12/24 02/13/24 15:00 23:00 07:00 Intake Total 250 ml 2150 ml 900 ml Output Total 3000 ml 1200 ml Balance 250 ml -850 ml -300 ml medications Current Medications Medications Dose Ordered Sig/Justine Route Start Time Stop Time Status Last Admin Dose Admin Diagnostic Test (Pha) 1 strip ACHS 02/09/24 17:00 02/13/24 06:08 1 STRIP Insulin Human Regular HS SC 02/09/24 22:00 02/12/24 21:47 4 UNITS Insulin Human Regular AC SC 02/09/24 17:00 02/13/24 06:16 6 UNITS Dextrose 50 ml UD PRN IV 02/09/24 17:00 Sodium Chloride 10 ml Q8HR IV 02/09/24 22:00 02/13/24 14:02 10 ML Acetaminophen 650 mg Q6HP PRN PO 02/09/24 17:00 Acetaminophen/ Hydrocodone Bitart 1 tab Q4HP PRN PO 02/09/24 17:00 Hydromorphone HCl 0.5 mg Q4HP PRN IV 02/09/24 17:00 Ondansetron HCl 4 mg Q4HP PRN IV 02/09/24 17:00 Vancomycin HCl 0 ml @ 0 mls/hr UD IV 02/09/24 18:15 Lisinopril 20 mg DAILY PO 02/10/24 10:45 02/13/24 14:00 20 MG Carvedilol 12.5 mg Q12HR PO 02/10/24 10:45 02/13/24 13:59 12.5 MG Lactulose 10 ml DAILYP PRN PO 02/12/24 10:00 02/12/24 21:59 10 ML Enteral Nutritional Formula 28.8 gm BID PO 02/12/24 22:00 Vancomycin HCl 250 ml @ 250 mls/hr Q12H IV 02/13/24 15:00 02/13/24 14:52 250 MLS/HR laboratory and microbiology Laboratory Tests 02/13/24 05:41 Test 02/13/24 05:41 Range/Units Serum Glucose 202 H 74-106 mg/dL Microbiology Date/Time Source Procedure Growth Status 02/12/24 15:59 Blood Blood Culture - Preliminary NO GROWTH AFTER 24 HOURS OF INCUBATION. Resulted 02/10/24 15:46 Foot Left Gram Stain - Final Resulted 02/10/24 15:46 Foot Left Anaerobic Culture - Preliminary Resulted 02/10/24 15:46 Aerobic Culture - Final Methicillin Resistant S.aureus Resulted Problem List/Assessment/Plan Problem List/Assessment/Plan Acute kidney injury hemodynamically mediated No previous history of kidney disease Hypertension Diabetes Sepsis secondary to osteomyelitis proteinuria 1.5gm recs stable renal function i will sign off the case/pls reconsult if needed Plan discussed with: Patient Dietary Evaluation Review Comments: 1. Continue current diet 2. Continue to adjust insulin regime 3. Consider jc BID (180kcal, 5g pro) for wound healing Expected Outcomes/Goals: 1. Pt will continue to consume >75% of estimated needs within 3-5 days CELESTE HER MD Feb 13, 2024 16:30
[2024-02-13] MEDS ORDERED: LINE1TAB6 PO (17:45)
--- NOTE | 2024-02-13 17:48 | DVHDS2 ---
Discharge Summary Date of Admission Feb 09, 2024 at 17:00 Date of Discharge: Feb 13, 2024 Labs/Diagnostic Data: Laboratory Results Test 02/13/24 07:53 02/13/24 05:41 02/10/24 22:20 02/09/24 22:20 Vancomycin Level Trough 19.0 ug/mL (5-10) White Blood Count 9.0 10^3/uL (4.4-10.8) Red Blood Count 3.72 10^6/uL (4.5-5.90) Hemoglobin 11.1 g/dL (13.5-17.5) Hematocrit 32.0 % (41.0-53.0) Mean Corpuscular Volume 86.0 fL (80.0-100.0) Mean Corpuscular Hemoglobin 29.9 pg (28.0-32.0) Mean Corpuscular Hemoglobin Concent 34.7 g/dL (32.0-36.0) Red Cell Distribution Width 13.5 % (11.8-14.3) Platelet Count 237 10^3/uL (140-450) Mean Platelet Volume 7.4 fL (6.9-10.8) Neutrophils (%) (Auto) 65.7 % (37.0-80.0) Lymphocytes (%) (Auto) 18.2 % (10.0-50.0) Monocytes (%) (Auto) 8.1 % (0.0-12.0) Eosinophils (%) (Auto) 7.4 % (0.0-7.0) Basophils (%) (Auto) 0.6 % (0.0-2.0) Neutrophils # (Auto) 5.9 10 ^3/uL (1.6-8.6) Lymphocytes # (Auto) 1.6 10 ^3/uL (0.4-5.4) Monocytes # (Auto) 0.7 10 ^3/uL (0-1.3) Eosinophils # (Auto) 0.7 10 ^3/uL (0-0.8) Basophils # (Auto) 0.1 10 ^3/uL (0-0.2) Nucleated Red Blood Cells 0.1 % Prothrombin Time 11.4 sec (9.3-11.8) Prothrombin Time INR 1.08 (0.9-1.15) Activated Partial Thromboplast Time 24.7 SEC (24.5-34.5) Sodium Level 138 mmol/L (136-145) Potassium Level 4.4 mmol/L (3.5-5.1) Chloride Level 105 mmol/L (98-107) Carbon Dioxide Level 29 mmol/L (20-31) Anion Gap 4 (5-15) Blood Urea Nitrogen 14 mg/dL (9-23) Creatinine 1.28 mg/dL (0.700-1.30) Glomerular Filtration Rate Calc 63 mL/min (>90) BUN/Creatinine Ratio 10.9 (10.0-20.0) Serum Glucose 202 mg/dL (74-106) Calcium Level 9.0 mg/dL (8.7-10.4) Total Bilirubin 0.4 mg/dL (0.2-1.0) Aspartate Amino Transferase (AST) 25 U/L (13-40) Alanine Aminotransferase (ALT) 24 U/L (7-40) Alkaline Phosphatase 97 U/L (46-116) Total Protein 6.0 g/dL (5.7-8.2) Albumin 3.3 g/dL (3.2-4.8) Urine Color Yellow (Yellow) Urine Clarity Clear (Clear) Urine pH 5.5 (5.0-9.0) Urine Specific [place] 1.021 (1.001-1.035) Urine Protein 2+ (Negative) Urine Ketones Negative (Negative) Urine Blood Negative /uL (Negative) Urine Nitrite Negative (Negative) Urine Bilirubin Negative (Negative) Urine Urobilinogen Normal mg/dL (Negative) Urine Leukocyte Esterase Negative /uL (Negative) Urine RBC 3 /hpf (0 - 3) Urine WBC 2 /hpf (0 - 3) Urine Squamous Epithelial Cells None seen /hpf (<5) Urine Bacteria None seen /hpf (None Seen) Urine Creatinine 121.05 mg/dL (30.0-125.0) Urine Protein/Creatinine Ratio 1.51 Urine Glucose 3+ mg/dL (Normal) Urine Total Protein 182.6 mg/dL (1-14) Urine Sodium 66 mmol/L (40-220) Test 02/09/24 09:50 Erythrocyte Sedimentation Rate 83 mm/hr (0-20) Hemoglobin A1c 9.3 % A1C (<5.7) Lactic Acid Level 1.4 mmol/L (0.4-2.0) C-Reactive Protein High Sensitivity 16.53 mg/dL (<1.0) Other Laboratory Tests 02/13/24 05:41 Brief Hx & Hospital Course: 63Y M with PMHx DM presents to ED for chief complaint lt foot cellulitis b0csony. Pt states he had a blister 2 weeks ago but last night it became worse. Pt says he developed serosanguineous drainage and redness/swelling of the lt foot last night. Pt is being f/u by Dr. Corey and is scheduled for grafts later this month. However, pt was told by Dr. Corey to come to the ED if blisters worsened. Patient presenting with acute worsening of left foot with drainage that is serosanguineous. on admit patient has leukocytosis, neutrophilia, elevated ESR CRP. Patient is started on broad-spectrum antibiotics and Podiatry consulted. MRI imaging shows concern for cellulitis, abscess and osteomyelitis in affected foot. Taken OR on 02/09 and also taking on 02/12, done I&D and clean. IV antibiotics continued while inpatient , vancomycin and Zosyn. After OR 02/12, podiatry recommends treating as abscess and cellulitis with outpatient p.o. antibiotics. Vitals and labs stable. And the cultures show MRSA. MRSA sensitive to p.o. linezolid. Initial blood culture 1 of 2 sample are with Staph epidermidis, sensitive to linezolid, but likely contamination. Patient is stable for discharge with plan hospital. Diagnosis: cellulitis and abscess of left foot; Diabetic foot infection with wound; diabetes; left foot cellulitis; left foot abscess; leukocytosis resolved neutrophilia resolving; staph bacteremia, likely contamination; diabetes Discharge plan: - linezolid 600mg 2x/day for 3 weeks - follow with podiatry (podiatry to repeat cbc cmp weekly) - follow-up with PCP - referral to nephrology - continue other home meds. use cane at home to help ambulation. returnto ED if notice worsening signs on wound or if developing recurrent high grade fevers. Visitation and planning required 35 minutes Condition at Discharge: Fair Final Diagnosis/Problems List cellulitis and abscess of left foot; Diabetic foot infection with wound; diabetes; left foot cellulitis; left foot abscess; leukocytosis resolved neutrophilia resolving; staph bacteremia, likely contamination; diabetes Discharge Disposition: Home Discharge Instruct/Medications Diet: Consistent carbohydrate Activity: No Restrictions, As Tolerated Follow Up/Referral: PCP, nephrology, podiatry Medications: as below Discharge Statement: "Patient was advised to return to the ER or call 911 if any headaches, dizziness, shortness of breath, chest pain, abdominal pain, bleeding, fevers, or worsening of medical condition. Patient was counseled about treatment plan, medications, possible side effects, patientverbalized understanding. All questions were answered to the best of my ability. This discharge took greater then 30 minutes in planning, reviewing documentation, counseling the patient, and discussing with other team members." ASSESSMENT ASSESSMENT Assessment cellulitis and abscess of left foot; Diabetic foot infection with wound; diabetes; left foot cellulitis; left foot abscess; leukocytosis resolved neutrophilia resolving; staph bacteremia, likely contamination; diabetes Date of Service: Feb 13, 2024 Billing Provider: BONITA CABRERA MD Common Visit Codes: 57744-JVR/OBS DISCH DAY >30min BONITA CABRERA MD Feb 13, 2024 17:48
== END 2024-02-13 19:45 | disposition home or self-care (01) | DRG 317 ==
LOC: ER 08:23 → OVERFLOW 17:00 → WEST WING 02-10 16:16 → EAST 02-12 17:53
PROVIDERS: ADMIT Internal Medicine; ATTEND Student in an Organized Health Care Education/Training Program
PROC: 0K9W0ZZ Drainage of Left Foot Muscle, Open Approach (ICD-10-PCS; 2024-02-10)
PROC: 0K9W0ZZ Drainage of Left Foot Muscle, Open Approach (ICD-10-PCS; principal; 2024-02-10 15:39)
DX: E11.69 Type 2 diabetes mellitus with other specified complication (principal); M86.8X7 Other osteomyelitis, ankle and foot; N17.0 Acute kidney failure with tubular necrosis; M72.6 Necrotizing fasciitis; L03.116 Cellulitis of left lower limb; I69.351 Hemiplegia and hemiparesis following cerebral infarction affecting right dominant side; L02.612 Cutaneous abscess of left foot; B95.62 Methicillin resistant Staphylococcus aureus infection as the cause of diseases classified elsewhere; E86.9 Volume depletion, unspecified; I10 Essential (primary) hypertension; K52.9 Noninfective gastroenteritis and colitis, unspecified; E78.5 Hyperlipidemia, unspecified; E03.9 Hypothyroidism, unspecified; K21.9 Gastro-esophageal reflux disease without esophagitis
CPT/HCPCS: 36415; 71045; 73630; 73718; 76775; 80048; 80053; 80202; 81001; 82565; 82570; 82962; 83036; 83605; 84156; 84300; 85025; 85610; 85652; 85730; 86141; 86850; 86900; 86901; 87040; 87070; 87075; 87077; 87186; 87205; 93005; 96365; 96366; G0378; J1815; J2250; J2543; J2704

== ENCOUNTER 2024-05-22 12:50 | Inpatient (IN) | payer MEDICAID ==
[~2024-05-22] VITALS: Ht 172.7 cm; Wt 119.7 kg
[~2024-05-22 12:50] MED LIST changes: -AMOX500T86 PO; +ASCO500T11 PO; +ATOR10TA52 PO; -BLOO1KIT60 XX; +EMPA1TAB PO; +HYDR25TA5 PO; -INSLANTI SC; -INSREGI SC; +INSU1INJ19 SC; -LANC-336 XX; +LINE1TAB6 PO; +LISI30TA8 PO; +LISI40TA16 PO; +METF-370 PO; +ZINC50TA7 PO
--- NOTE | 2024-05-22 13:18 | ED.PDOC ---
History of Present Illness HPI Comments 64 y/o obese M, with a history of DM and HTN, present for c/o nonhealing, left- foot wound, today. Patient endorses on seeing his group home worker and being referred to the ED for admission for debridement of wound from leftover cellulitis and abscess. He reports on wound being located to the top portion of his foot. He denies any discharge, pain, swelling, redness, or other associated symptoms or modifiers at this time. Upon arrival to ED, patient was found with a blood pressure of 186/91, with report of fluctuating blood pressure history. Time Seen by MD: 13:00 Primary Care Provider: DR BECK Reviewed Notes: Nurses Notes, Medications, Allergies Allergies: Coded Allergies: NO KNOWN ALLERGIES (Unverified , 05/29/21) Home Meds Active Scripts Linezolid (Zyvox) 600 Mg Tab, 600 MG PO BID for 21 Days, #42 TAB 0 Refills Prov:BONITA CABRERA MD 02/13/24 Reported Medications Zinc Gluconate (Zinc) 50 Mg Tab, 50 MG PO DAILY, TAB 02/10/24 Ascorbic Acid (VITAMIN C TABLET) 500 Mg Tb, 1000 MG PO DAILY, TAB 02/10/24 Atorvastatin Calcium (ATORVASTATIN CALCIUM) 10 Mg Tab, 1 TAB PO QPM 02/10/24 Hctz (Hydrochlorothiazide) 25 Mg Tab, 1 TAB PO QAM 02/10/24 Lisinopril (Lisinopril) 30 Mg Tab, 1 TAB PO DAILY 02/10/24 Metformin Hydrochloride (Metformin Hcl) 500 Mg Tab, 1 TAB PO BID 02/10/24 Information Source: Patient Mode of Arrival: Ambulatory Severity: Moderate Timing: Hours Duration: Since onset Prehospital treatment: Other (dressed) Past Medical History PAST MEDICAL HISTORY: DM, HTN Surgical History: Denies all surgeries Family History Family History: Reviewed,noncontributory to illness Social History Smoker: Non-Smoker Alcohol: Denies ETOH Use Drugs: Denies Drug Use Lives In: Home Constitutional: denies: chills, diaphoresis, fatigue, fever, malaise, sweats, weakness, others EENTM: denies: blurred vision, double vision, ear bleeding, ear discharge, ear drainage, ear pain, ear ringing, eye pain, eye redness, hearing loss, mouth pain, mouth swelling, nasal discharge, nose bleeding, nose congestion, nose pain, photophobia, tearing, throat pain, throat swelling, voice changes, others Respiratory: denies: cough, hemoptysis, orthopnea, SOB at rest, shortness of breath, SOB with excertion, stridor, wheezing, others Cardiovascular: denies: chest pain, dizzy spells, diaphoresis, Dyspnea on exertion, edema, irregular heart beat, left arm pain, lightheadedness, palpitations, PND, syncope, others Genitourinary: denies: burning, dysuria, flank pain, frequency, hematuria, incontinence, penile discharge, penile sore, pain, testicle pain, testicle swelling, urgency, others Neurological: denies: dizziness, fainting, headache, left sided numbness, left sided weakness, numbness, paresthesia, pre-existing deficit, right sided numbness, right sided weakness, seizure, speech problems, tingling, tremors, weakness, others Musculoskeletal: denies: back pain, gout, joint pain, joint swelling, muscle pain, muscle stiffness, neck pain, others Integumetry: reports: wounds (left foot ); denies: bruises, change in color, change in hair/nails, dryness, laceration, lesions, lumps, rash, others Allergic/Immunocompromised: denies: Difficulty Healing, Frequent Infections, Hives, Itching, others Hematologic/Lymphatic: denies: anemia, blood clots, easy bleeding, easy bruising, swollen glands, others Endocrine: denies: excessive hunger, excessive sweating, excessive thirst, excessive urination, flushing, intolerance to cold, intolerance to heat, unexplained weight gain, unexplained weight loss, others Psychiatric: denies: anxiety, bipolar disorder, depression, hopeless, panic disorder, schizophrenia, sleepless, suicidal, others All Other Systems: Reviewed and Negative Physical Exam General Appearance: Mild Distress HEENT: Normal ENT Inspection, Pharynx Normal, TMs Normal Neck: Full Range of Motion, Non-Tender, Normal, Normal Inspection Respiratory: Chest Non-Tender, Lungs Clear, No Accessory Muscle Use, No Respiratory Distress, Normal Breath Sounds Cardiovascular: No Edema, No JVD, No Murmur, No Gallop, Normal Peripheral Pulses, Regular Rate/Rhythm Breast Exam: Deferred Gastrointestinal: No Organomegaly, Non Tender, No Pulsatile Mass, Normal Bowel Sounds, Soft Genitalia: Deferred Pelvic: Deferred Rectal: Deferred Extremities: No calf tenderness, Normal capillary refill, No pedal edema, Other (Left foot with open wound on the left foot.) Musculoskeletal : Apperance: Normal Neurologic: Alert, wash oil pump operator II-XII nml as Tested, No Motor Deficits, Normal Affect, Normal Mood, No Sensory Deficits Cerebellar Function: Normal Reflexes: Normal Skin: Dry, Normal Color, Warm Lymphatic: No Adenopathy Was a procedure done? Was a procedure done?: No Differential Dx Considerations may include: nonhealing wound, osteomyelitis, dermatitis, cellulitis, among others X-Ray, Labs, Meds, VS Lab Test 05/22/24 13:15 Range/Units White Blood Count 8.1 4.4-10.8 10^3/uL Red Blood Count 4.11 L 4.5-5.90 10^6/uL Hemoglobin 12.3 L 13.5-17.5 g/dL Hematocrit 35.7 L 41.0-53.0 % Mean Corpuscular Volume 86.9 80.0-100.0 fL Mean Corpuscular Hemoglobin 30.0 28.0-32.0 pg Mean Corpuscular Hemoglobin Concent 34.5 32.0-36.0 g/dL Red Cell Distribution Width 15.5 H 11.8-14.3 % Platelet Count 203 140-450 10^3/uL Mean Platelet Volume 8.2 6.9-10.8 fL Neutrophils (%) (Auto) 67.2 37.0-80.0 % Lymphocytes (%) (Auto) 21.0 10.0-50.0 % Monocytes (%) (Auto) 7.9 0.0-12.0 % Eosinophils (%) (Auto) 3.3 0.0-7.0 % Basophils (%) (Auto) 0.6 0.0-2.0 % Neutrophils # (Auto) 5.4 1.6-8.6 10 ^3/uL Lymphocytes # (Auto) 1.7 0.4-5.4 10 ^3/uL Monocytes # (Auto) 0.6 0-1.3 10 ^3/uL Eosinophils # (Auto) 0.3 0-0.8 10 ^3/uL Basophils # (Auto) 0 0-0.2 10 ^3/uL Nucleated Red Blood Cells 0.0 % Erythrocyte Sedimentation Rate 40 H 0-20 mm/hr Sodium Level 136 136-145 mmol/L Potassium Level 4.9 3.5-5.1 mmol/L Chloride Level 102 98-107 mmol/L Carbon Dioxide Level 24 20-31 mmol/L Anion Gap 10 5-15 Blood Urea Nitrogen 56 H 9-23 mg/dL Creatinine 1.61 H 0.700-1.30 mg/dL Glomerular Filtration Rate Calc 48 >90 mL/min BUN/Creatinine Ratio 34.8 H 10.0-20.0 Serum Glucose 245 H 74-106 mg/dL Calcium Level 10.6 H 8.7-10.4 mg/dL IV Hep-Lock was established The CBC is within normal limits The patient was BUN is 56 and the creatinine is 1.61 At this time, the patient was glucose is 245 The patient is being admitted for the surgery to the left foot. We are consulting with the foot and ankle surgeon The patient was admitted. Time of 1ST Reevaluation: 13:30 Reevaluation 1ST: Unchanged Patient Education/Counseling: Diagnosis, Treatment, Prognosis Family Education/Counseling: No Family Present Departure 1 Departure Time of Disposition: 14:56 Impression: Primary Impression: Unspecified open wound, left foot, sequela Disposition: ADMITTED INPATIENT Admit to: Med Surg Condition: Fair Critical Care Note Critical Care Time?: No Stability Stability form required: Yes Unstable for transfer: ED Physician Assesment (Clinical assesment) Heart Score Heart Score: Heart Score Response (Comments) Value History N/A 0 EKG N/A 0 Age N/A 0 Risk Factors N/A 0 Troponin N/A 0 Total 0 I personally scribed for SHANE ROCHA MD ([email or web address]) on 05/22/24 at 13:18. Electronically submitted by Tomas Hughes [email or web address]). SHANE ROCHA MD May 22, 2024 13:18
[2024-05-22 13:31] LABS: Basophils # (auto) 0 10 ^3/uL (0-0.2); Basophils % (auto) 0.6 % (0.0-2.0); Eosinophils # (auto) 0.3 10 ^3/uL (0-0.8); Eosinophils % (auto) 3.3 % (0.0-7.0); Hematocrit 35.7 % (41.0-53.0); Hemoglobin 12.3 g/dL (13.5-17.5); Lymphocytes # (auto) 1.7 10 ^3/uL (0.4-5.4); Mean Corpuscular Hgb Conc. 34.5 g/dL (32.0-36.0); Mean Corpuscular Volume 86.9 fL (80.0-100.0); Monocytes # (auto) 0.6 10 ^3/uL (0-1.3); Monocytes % (auto) 7.9 % (0.0-12.0); Neutrophils # (auto) 5.4 10 ^3/uL (1.6-8.6); Neutrophils % (auto) 67.2 % (37.0-80.0); Platelet Count (auto) 203 10^3/uL (140-450); Red Blood Cells 4.11 10^6/uL (4.5-5.90); Red Cell Distribution Width 15.5 % (11.8-14.3); White Blood Cell 8.1 10^3/uL (4.4-10.8)
[2024-05-22 13:40] LABS: Chloride 102 mmol/L (98-107); Potassium 4.9 mmol/L (3.5-5.1); Sodium 136 mmol/L (136-145)
[2024-05-22 13:41] LABS: Anion Gap 10 (5-15); Carbon Dioxide 24 mmol/L (20-31)
[2024-05-22 13:53] LABS: BUN/Creatinine Ratio 34.8 (10.0-20.0); Blood Urea Nitrogen 56 mg/dL (9-23); Calcium 10.6 mg/dL (8.7-10.4); Glucose 245 mg/dL (74-106)
[2024-05-22 14:12] LABS: Erythrocyte Sedimentation Rate 40 mm/hr (0-20)
--- NOTE | 2024-05-22 22:59 | DVHHPRES ---
History of Present Illness Resident Creating Document: CHAYITO TRIPLETT RESIDENT History of Present Illness 64-year-old male with past medical history of diabetes mellitus type 2 and hypertension, previous admission for left foot osteomyelitis in February where he was treated with IV antibiotics and had been seeing solutions manager presented with complaints of left nonhealing wound on the dorsum of the foot which has been present since February and is not healed completely. Patient mentioned that he visited podiatry clinic where he was told to go to the hospital and patient will be getting his possible skin graft by the solutions manager. He mentioned no other complaints of chest pain, shortness of breath, dyspnea, nausea, vomiting, abdominal pain Past medical history Diabetes mellitus type 2, hypertension, osteomyelitis left foot Past surgical history I and D left foot Social history Denied smoking, alcohol, marijuana or any other drug intake Family history Not significant Medication history Atorvastatin, hydrochlorothiazide, lisinopril, metformin Review of Systems Review of Systems As described in the HPI Allergies: Coded Allergies: NO KNOWN ALLERGIES (Unverified , 05/29/21) Exam Vital Signs Vital Signs Date Time Temp Pulse Resp B/P (MAP) Pulse Ox O2 Delivery O2 Flow Rate FiO2 05/22/24 13:00 97.5 101 18 126/83 (97) 95 97.5 Exam Examination Limited examination as patient is in lobby General Appearance: Alert, Oriented X3, Cooperative, No acute distress HEENT: EOMI Respiratory: Clear to auscultation, Normal air movement Cardiovascular: Regular rate, Normal S1, Normal S2 Abdominal: Normal bowel sounds Extremities: Left foot covered in bandage Skin: No rashes, No breakdown Neuro: Normal gait, Normal speech, Strength at 5/5 X4 ext, Normal tone, Sensation intact, Cranial nerves 3-12 NL, Reflexes 2+ Psych/Mental Status: Mental status NL, Mood NL Labs/Xrays Labs Test 05/22/24 13:15 Range/Units White Blood Count 8.1 4.4-10.8 10^3/uL Red Blood Count 4.11 L 4.5-5.90 10^6/uL Hemoglobin 12.3 L 13.5-17.5 g/dL Hematocrit 35.7 L 41.0-53.0 % Mean Corpuscular Volume 86.9 80.0-100.0 fL Mean Corpuscular Hemoglobin 30.0 28.0-32.0 pg Mean Corpuscular Hemoglobin Concent 34.5 32.0-36.0 g/dL Red Cell Distribution Width 15.5 H 11.8-14.3 % Platelet Count 203 140-450 10^3/uL Mean Platelet Volume 8.2 6.9-10.8 fL Neutrophils (%) (Auto) 67.2 37.0-80.0 % Lymphocytes (%) (Auto) 21.0 10.0-50.0 % Monocytes (%) (Auto) 7.9 0.0-12.0 % Eosinophils (%) (Auto) 3.3 0.0-7.0 % Basophils (%) (Auto) 0.6 0.0-2.0 % Neutrophils # (Auto) 5.4 1.6-8.6 10 ^3/uL Lymphocytes # (Auto) 1.7 0.4-5.4 10 ^3/uL Monocytes # (Auto) 0.6 0-1.3 10 ^3/uL Eosinophils # (Auto) 0.3 0-0.8 10 ^3/uL Basophils # (Auto) 0 0-0.2 10 ^3/uL Nucleated Red Blood Cells 0.0 % Erythrocyte Sedimentation Rate 40 H 0-20 mm/hr Sodium Level 136 136-145 mmol/L Potassium Level 4.9 3.5-5.1 mmol/L Chloride Level 102 98-107 mmol/L Carbon Dioxide Level 24 20-31 mmol/L Anion Gap 10 5-15 Blood Urea Nitrogen 56 H 9-23 mg/dL Creatinine 1.61 H 0.700-1.30 mg/dL Glomerular Filtration Rate Calc 48 >90 mL/min BUN/Creatinine Ratio 34.8 H 10.0-20.0 Serum Glucose 245 H 74-106 mg/dL Calcium Level 10.6 H 8.7-10.4 mg/dL Assessment/Plan Assessment/Plan Assessment and plan # left foot nonhealing ulcer Podiatry consult IV antibiotics, broad spectrum IV fluids #JUAN JOSE IV fluids Monitor BMP # diabetes mellitus type 2 Mild sliding scale insulin Hemoglobin A1c DVT prophylaxis pt is ambulatory Case discussion with Dr. Navarrete Plan discussed with: Patient My Orders Orders - CHAYITO TRIPLETT RESIDENT Procedure Category Date Status Time Admit ADMIT 05/22/24 Verified 22:58 Oxygen By Nasal RT 05/22/24 Verified Cannula 22:58 Stat Ekg For Chest FRANCES 05/22/24 Verified Pain 22:58 Notify Md Of Changes [facility] 05/22/24 Verified From Base 22:58 Electrical Sign Servicer For [facility] 05/22/24 Verified 24 Hours 22:58 Emergency Dysrhythmia [facility] 05/22/24 Verified Protocol 22:58 Rhythm Strips Once [facility] 05/22/24 Verified Every Shift 22:58 Date of Service: May 22, 2024 Billing Provider: KALEB NAVARRETE MD Common Visit Codes: [id number] INP/OBS CARE (HIGH) CHAYITO TRIPLETT RESIDENT May 22, 2024 22:59 KALEB NAVARRETE MD May 23, 2024 13:41
[2024-05-22 23:53] VITALS: PULSE 88; RESP 19; O2SAT 97
[2024-05-23 01:00] VITALS: PULSE 88; RESP 18; O2SAT 99
[2024-05-23] MEDS ORDERED: AMPICILLIN & SULBACTAM SODIUM 3 GM in SODIUM CHL 0.9% 100 ML IV SCH (01:15)
[2024-05-23] MEDS: SODIUM CHLORIDE 0.9% 500 ML IV ONE ×2 (01:51→06:16)
[2024-05-23] MEDS: DOXYCYCLINE 100MG/100ML 100 ML IV ONE ×2 (02:00→10:30)
[2024-05-23] MEDS ORDERED: DEXTROSE (50%) 50ML SYRG IV PRN ×2 (02:00→16:30)
[2024-05-23] MEDS: InsuLIN REG 1unit/0.01ml Soln (100units/ml) SC SCH ×2 (04:00→20:00)
[2024-05-23] MEDS: ACCU-CHEK COMFORT CURVE STRIP VI SCH ×2 (04:22→20:00)
[2024-05-23] MEDS: CEFEPIME 2GM/50ML NS 50 ML IV ONE (04:30)
--- NOTE | 2024-05-23 06:49 | DVH ---
EXAM: XR Chest, 1 View CLINICAL INDICATION: pre-op TECHNIQUE: Frontal view of the chest. COMPARISON: XY CHEST PORTABLE on DOS: 02/13/24, XY CHEST PORTABLE on DOS: 05/20/23, CHEST XRAY 1 VIEW on DOS: 05/30/21 FINDINGS: LUNGS AND PLEURAL SPACES: Unremarkable. No consolidation. No pneumothorax. HEART: Unremarkable. No cardiomegaly. MEDIASTINUM: Unremarkable. Normal mediastinal contour. BONES/JOINTS: Unremarkable. No acute fracture. OTHER FINDINGS: . None. IMPRESSION: No acute cardiopulmonary process.
[2024-05-23 06:50] LABS: Basophils # (auto) 0 10 ^3/uL (0-0.2); Basophils % (auto) 0.6 % (0.0-2.0); Eosinophils # (auto) 0.2 10 ^3/uL (0-0.8); Eosinophils % (auto) 3.9 % (0.0-7.0); Hemoglobin 11.9 g/dL (13.5-17.5); Lymphocytes # (auto) 1.3 10 ^3/uL (0.4-5.4); Lymphocytes % (auto) 20.2 % (10.0-50.0); Mean Corpuscular Hemoglobin 28.9 pg (28.0-32.0); Mean Corpuscular Hgb Conc. 33.1 g/dL (32.0-36.0); Mean Corpuscular Volume 87.2 fL (80.0-100.0); Monocytes # (auto) 0.6 10 ^3/uL (0-1.3); Monocytes % (auto) 9.2 % (0.0-12.0); Neutrophils # (auto) 4.2 10 ^3/uL (1.6-8.6); Neutrophils % (auto) 66.1 % (37.0-80.0); Platelet Count (auto) 179 10^3/uL (140-450); Red Blood Cells 4.13 10^6/uL (4.5-5.90); Red Cell Distribution Width 15.8 % (11.8-14.3); White Blood Cell 6.4 10^3/uL (4.4-10.8)
[2024-05-23 07:05] LABS: INR 0.98 (0.9-1.15); Partial Thromboplastin Time 24.2 SEC (24.5-34.5); Prothrombin Time 10.4 sec (9.3-11.8)
[2024-05-23 07:23] LABS: Alanine Aminotransferase 25 U/L (7-40); Albumin 4.4 g/dL (3.2-4.8); Alkaline Phosphatase 106 U/L (46-116); Anion Gap 9 (5-15); BUN/Creatinine Ratio 36.2 (10.0-20.0); Calcium 10.2 mg/dL (8.7-10.4); Carbon Dioxide 24 mmol/L (20-31); Chloride 106 mmol/L (98-107); Sodium 139 mmol/L (136-145); Total Protein 7.4 g/dL (5.7-8.2)
[2024-05-23 07:24] LABS: Aspartate Aminotransferase 17 U/L (13-40); Bilirubin, Total 0.4 mg/dL (0.2-1.0)
[2024-05-23 07:25] LABS: Blood Urea Nitrogen 54 mg/dL (9-23); Glucose 197 mg/dL (74-106); Potassium 5.1 mmol/L (3.5-5.1)
[2024-05-23] MEDS ORDERED: metroNIDAZOLE 500MG/100ML 100 ML IV ONE (08:30)
[2024-05-23] MEDS: SODIUM CHLORIDE 0.9% 1,000 ML IV ONE (08:30)
[2024-05-23] MEDS ORDERED: ATORVASTATIN 20 MG TAB PO ONE (08:30)
--- NOTE | 2024-05-23 09:28 | DVHINCON2 ---
Date Seen: May 23, 2024 Reason for Consultation Left foot wound History of Present Illness 64-year-old male with past medical history of diabetes mellitus type 2 and hypertension, previous admission for left foot osteomyelitis in February where he was treated with IV antibiotics and had been seeing college instructor presented with complaints of left nonhealing wound on the dorsum of the foot which has been present since February and is not healed completely. Patient mentioned that he visited podiatry clinic where he was told to go to the hospital and patient will be getting his possible skin graft by the college instructor. He mentioned no other complaints of chest pain, shortness of breath, dyspnea, nausea, vomiting, abdominal pain Past Medical History See H&P Past Surgical History See H&P Family History: Patient reports no known family medical history. Allergies: Coded Allergies: NO KNOWN ALLERGIES (Unverified , 05/29/21) Home Meds Active Scripts Linezolid (Zyvox) 600 Mg Tab, 600 MG PO BID for 21 Days, #42 TAB 0 Refills Prov:BONITA CABRERA MD 02/13/24 Reported Medications Zinc Gluconate (Zinc) 50 Mg Tab, 50 MG PO DAILY, TAB 02/10/24 Ascorbic Acid (VITAMIN C TABLET) 500 Mg Tb, 1000 MG PO DAILY, TAB 02/10/24 Atorvastatin Calcium (ATORVASTATIN CALCIUM) 10 Mg Tab, 1 TAB PO QPM 02/10/24 Hctz (Hydrochlorothiazide) 25 Mg Tab, 1 TAB PO QAM 02/10/24 Lisinopril (Lisinopril) 30 Mg Tab, 1 TAB PO DAILY 02/10/24 Metformin Hydrochloride (Metformin Hcl) 500 Mg Tab, 1 TAB PO BID 02/10/24 Current Medications Current Medications Medications (Trade) Dose Ordered Sig/Justine Route PRN Reason Start Time Stop Time Status Last Admin Ampicillin Sodium/ Sulbactam Sodium 3 gm/Sodium Chloride 100 ml @ 100 mls/hr Q6H IV 05/23/24 01:15 05/23/24 01:57 DC Diagnostic Test (Pha) (Accu-Chek Comfort Curve T) 1 strip IQ4HR 05/23/24 04:00 05/23/24 04:22 Insulin Human Regular (InsuLIN R) IQ4HR SC 05/23/24 04:00 Dextrose 50 ml UD PRN IV Blood Sugar LESS THAN 60 05/23/24 02:00 Levofloxacin/ Dextrose 100 ml @ 100 mls/hr DAILY IV 05/23/24 10:00 Doxycycline Hyclate 100 ml @ 50 mls/hr Q12H IV 05/23/24 22:00 Metronidazole 100 ml @ 100 mls/hr Q8HR IV 05/23/24 14:00 Atorvastatin Calcium (Lipitor) 40 mg HS PO 05/23/24 22:00 Vital Signs Vital Signs Date Time Temp Pulse Resp B/P (MAP) Pulse Ox O2 Delivery O2 Flow Rate FiO2 05/23/24 06:26 66 13 128/53 (78) 96 05/23/24 01:00 Room Air* 0 21 05/23/24 00:30 97.8 97.8 Physical Exam Dermatological: Skin is dry with mild erythema and some maceration around the wound site No gross deformities noted Mild non-pitting edema present bilaterally Wound: Location: Left dorsal foot Measures: 3 cm in length, 2 cm in width, and 1 cm in depth. Depth: Full thickness Base: Mix of granulation/slough Drainage: None Odor: None Periwound: Intact Vascular: Dorsalis pedis and posterior tibial pulses are 1+ bilaterally Capillary refill is under 2 seconds Skin temperature is warm bilaterally Neurologic: Protective sensation is absent on the plantar forefoot bilaterally Monofilament testing reveals decreased sensation in multiple plantar sites Musculoskeletal: Range of motion at the ankle and MTP joints is within normal limits. Strength is 5/5 in all tested muscle groups. Gait is antalgic due to offloading of the affected limb. Labs/Diagnostic Data Labs Test 05/23/24 06:23 05/23/24 04:20 05/22/24 13:15 Range/Units White Blood Count 6.4 4.4-10.8 10^3/uL Red Blood Count 4.13 L 4.5-5.90 10^6/uL Hemoglobin 11.9 L 13.5-17.5 g/dL Hematocrit 36.0 L 41.0-53.0 % Mean Corpuscular Volume 87.2 80.0-100.0 fL Mean Corpuscular Hemoglobin 28.9 28.0-32.0 pg Mean Corpuscular Hemoglobin Concent 33.1 32.0-36.0 g/dL Red Cell Distribution Width 15.8 H 11.8-14.3 % Platelet Count 179 140-450 10^3/uL Mean Platelet Volume 8.3 6.9-10.8 fL Neutrophils (%) (Auto) 66.1 37.0-80.0 % Lymphocytes (%) (Auto) 20.2 10.0-50.0 % Monocytes (%) (Auto) 9.2 0.0-12.0 % Eosinophils (%) (Auto) 3.9 0.0-7.0 % Basophils (%) (Auto) 0.6 0.0-2.0 % Neutrophils # (Auto) 4.2 1.6-8.6 10 ^3/uL Lymphocytes # (Auto) 1.3 0.4-5.4 10 ^3/uL Monocytes # (Auto) 0.6 0-1.3 10 ^3/uL Eosinophils # (Auto) 0.2 0-0.8 10 ^3/uL Basophils # (Auto) 0 0-0.2 10 ^3/uL Nucleated Red Blood Cells 0.0 % Prothrombin Time 10.4 9.3-11.8 sec Prothrombin Time INR 0.98 0.9-1.15 Activated Partial Thromboplast Time 24.2 L 24.5-34.5 SEC Sodium Level 139 136-145 mmol/L Potassium Level 5.1 3.5-5.1 mmol/L Chloride Level 106 98-107 mmol/L Carbon Dioxide Level 24 20-31 mmol/L Anion Gap 9 5-15 Blood Urea Nitrogen 54 H 9-23 mg/dL Creatinine 1.49 H 0.700-1.30 mg/dL Glomerular Filtration Rate Calc 52 >90 mL/min BUN/Creatinine Ratio 36.2 H 10.0-20.0 Serum Glucose 197 H 74-106 mg/dL Calcium Level 10.2 8.7-10.4 mg/dL Total Bilirubin 0.4 0.2-1.0 mg/dL Aspartate Amino Transferase (AST) 17 13-40 U/L Alanine Aminotransferase (ALT) 25 7-40 U/L Alkaline Phosphatase 106 46-116 U/L Total Protein 7.4 5.7-8.2 g/dL Albumin 4.4 3.2-4.8 g/dL POC Glucose 192 H 70-106 mg/dl Erythrocyte Sedimentation Rate 40 H 0-20 mm/hr Problems(with codes): (1) Cellulitis of left lower extremity (2) Necrotizing fasciitis (3) Leukocytosis (4) Sepsis (5) DKA (diabetic ketoacidosis) (6) Foot abscess, left (7) Unspecified open wound, left foot, sequela Plan/Recommendation ASSESSMENT: Patient is a 64 year old seen on the floor for a worsening ulcer PLAN: - The patients chart was reviewed, clinical findings were discussed with the patient, the etiologies of the conditions were discussed in detail, and a treatment plan was agreed to at this time, with both oral and written instructions provided. - reviewed advanced imaging - discussed plan is to perform an incision and drainage and graft placement - patient has been NPO since midnight - take him to the OR today - can weightbear as tolerated in postoperative shoe All questions were answered and concerns addressed to the patient's satisfaction. The patient was given the phone number to the clinic and was told how to make contact with the clinic should any concerns or questions arise. Patient understands that if any questions or concerns arise prior to the next a ppointment, we should be contacted immediately. FOLLOW-UP: Continue to follow while inpatient Plan discussed with: Patient Date of Service: May 23, 2024 Billing Provider: BRIAN MUNROE DPM Common Visit Codes: CONSULT ONLY Consultation Codes: [id number] CONSULT <80MIN BRIAN MUNROE DPM May 23, 2024 09:28
[2024-05-23] MEDS: levoFLOXacin 500MG 100 ML IV SCH (10:11)
[2024-05-23] MEDS: levoFLOXacin 500MG 100 ML IV ONE (10:12)
[2024-05-23 11:44] VITALS: PULSE 68; RESP 14; O2SAT 98
[2024-05-23] MEDS: metroNIDAZOLE 500MG/100ML 100 ML IV ONE (11:56)
--- NOTE | 2024-05-23 12:53 | DVHOP2 ---
Operative Report - 2 Report Details Date: 05/23/24 Preop Diagnosis: 1. Left foot osteomyelitis 2. Left foot abscess 3. Left foot chronic diabetic ulceration Postop Diagnosis: Same as preop Surgeon: Brian Munroe MD Anesthesiologist: See anesthesia Anesthesia: Mac Consent: The patient was informed of the risks and benefits of the procedure. These include but are not limited to complications of anesthesia, postoperative infection, incomplete relief of symptoms, recurrence of symptoms, damage to blood vessels, nerves and tendons, deep venous thrombosis, pulmonary embolism and possible need for repeat surgery in the future. Complications: None Estimated Blood Loss: Minimal Fluids: See anesthesia Findings: Consistent with the diagnosis Indications for Surgery: Worsening left foot wound Name of Procedure Performed 1. Left foot I&D to bone (90791) 2. Left foot wound bed preparation for graft (30345) 3. Left foot graft placement (04678) Procedure Details Procedure Details: PRE-PROCEDURE INFORMATION: In the pre-op holding area, the extremity to be operated on was clearly marked and the patient verified correct laterality of the marking. The patient was transferred to the OR table and placed in a supine position. A timeout was performed in which identification of the correct patient, procedure, location, and materials was done. The left foot and leg were prepped and draped in normal sterile fashion. DESCRIPTION OF PROCEDURE: Attention was directed to the left where area of fluctuance was noted. An incision was made over this area and was deepened through blunt dissection. The incision was deepened to the level of abscess and bone. Care was taken to the dissection to avoid any neurovascular and tendinous structures. The incision was deepened to the bone, and the abscess appeared to be purulent fluid consistent with pus. The cortices of the bone was then removed with rongeur an all necrotic tissue. After the abscess was drained, the area was irrigated with 3 L normal saline using cysto tubing. Deep cultures were then obtained from the wound. The area was then inspected and any areas of tracking, especially along the tendons were also drained. The wound bed was the n prepped for placement of graft using a 15 blade to remove all the fibrotic and necrotic tissues, to allow for more exposure of underlying granular tissue. The Integra graft was then placed onto the wound and alma were applied to the foot and will stay in place for approximately 2-3 weeks. All surgical wounds were irrigated copiously with saline and closed in layers with the aforementioned suture material. A dry sterile dressing was placed on the surgical extremity. The patient was placed in a postop shoe POSTOPERATIVE INFORMATION: The patient tolerated the above noted procedure and anesthesia well and was transferred to the PACU with vital signs stable, and vascular status intact with capillary refill intact to all digits. Patient is a with the dressings clean dry and intact until first postoperative visit. Patient can be discharged today. Patient can be weight-bearing as tolerated in a postoperative shoe. Condition Good Disposition Still a Patient BRIAN MUNROE DPM May 23, 2024 12:53
[2024-05-23] MEDS ORDERED: fentaNYL CITRATE 100 MCG/2 ML VL ONE (12:59)
[2024-05-23] MEDS ORDERED: MIDAZOLAM HCL 2MG/2ML 2ml VIAL (1mg/ml) ONE (12:59)
[2024-05-23] MEDS ORDERED: LIDOCAINE 2% (LOCAL ANESTH.) PF 5ml SDV ONE (13:00)
[2024-05-23] MEDS ORDERED: PROPOFOL 10 MG/ML 20 ML IV ONE (13:00)
[2024-05-23] MEDS: BUPIVACAINE HCL 0.25% P/F 10 ML VIAL ONE (13:15)
[2024-05-23 13:21] VITALS: RESP 10; O2SAT 100
--- NOTE | 2024-05-23 15:05 | DVHPNRES ---
Progress Note Date Seen: May 23, 2024 Resident Creating Document: MAYRA LIMA RENNY Has the PT tested + for MRSA If YES, has PT been informed?: No Medical Necessity Reason Pt with a Central, PICC or Fol: No Subjective Review of Systems This is a 64-year-old male with past medical history of diabetes, hypertension, referred from clinic due to chronic left leg also. Per patient he has chronic left foot ulcer since 3 years, had performed a skin graft 2 weeks back which has not healed properly, today upon office visit (with Podiatry, Dr. Akbar), he was referred to the hospital. He denies fever, nausea, vomiting, chest pain, shortness of breath, leg pain or any recent bowel and bladder habit changes. PMHx: Diabetes type 2 and hypertension PSHx: Underwent left foot ulcer skin graft 2 weeks back Family history: Noncontributory Social history: Denies smoking, denies any other drug use. Lives at home. Home medication: Atorvastatin, hydrochlorothiazide, lisinopril, metformin, Jardiance Allergic history: No known allergy Patient seen and examined at the bedside. Patient is complaining of left food ulcer. Patient reports: No new complaints, Feels better Changes from previous H/P or p: Changes Objective vital signs Vital Sign Date Time Temp Pulse Resp B/P (MAP) Pulse Ox O2 Delivery O2 Flow Rate FiO2 05/23/24 14:00 64 13 141/69 (93) 97 05/23/24 13:38 Room Air 100 05/23/24 13:21 10.0 05/23/24 13:21 97.6 97.6 medications Current Medications Medications Dose Ordered Sig/Justine Route Start Time Stop Time Status Last Admin Dose Admin Diagnostic Test (Pha) 1 strip IQ4HR 05/23/24 04:00 05/23/24 12:10 1 STRIP Insulin Human Regular IQ4HR SC 05/23/24 04:00 05/23/24 12:18 3 UNITS Dextrose 50 ml UD PRN IV 05/23/24 02:00 Levofloxacin/ Dextrose 100 ml @ 100 mls/hr DAILY IV 05/23/24 10:00 05/23/24 10:11 100 MLS/HR Doxycycline Hyclate 100 ml @ 50 mls/hr Q12H IV 05/23/24 22:00 Metronidazole 100 ml @ 100 mls/hr Q8HR IV 05/23/24 14:00 Atorvastatin Calcium 40 mg HS PO 05/23/24 22:00 Examination General Appearance: Alert, Oriented X3, Cooperative, No acute distress HEENT: Atraumatic, PERRLA, EOMI, Mucous membrane moist/pink Respiratory: Clear to auscultation, Normal air movement Cardiovascular: Regular rate, Normal S1, Normal S2, No murmurs, no chest wall tenderness Abdominal: Normal bowel sounds, Soft, No tenderness, No hepatospenomegaly, No masses Extremities: Bilateral dorsal pedis and posterior tibial bursal 1+ with and increased capillary refill time Skin: There is an open ulcer on the dorsal surface of the left foot, with mild erythema and maceration around the wound, mild nonpitting edema. Ulcer size: 3 cm in length recent 2 cm in width, 1 cm in depth with some granulation slough on the surface. Neuro: Normal gait, Normal speech, Strength at 5/5 X4 ext, Normal tone, Sensation intact, Cranial nerves 3-12 NL, Reflexes 2+ Psych/Mental Status: Mental status NL, Mood NL laboratory and microbiology Laboratory Tests 05/23/24 06:23 Test 05/23/24 06:23 Range/Units Serum Glucose 197 H 74-106 mg/dL Labs and/or images reviewed: Labs reviewed by me, Image(s) reviewed by me Problem List/Assessment/Plan Problem List/Assessment/Plan Diabetic foot Cellulitis of lower limb Left foot abscess Ruled out sepsis/necrotizing fasciitis Diabetes type 2 with hyperglycemia Ruled out DKA/HHS Pediatric consulted, performed incision and drainage of abscess, deep culture were obtained, and Integra graft was placed on the wounds Empiric antibiotic, levofloxacin, Flagyl and doxycycline IV fluid Pain management Insulin according to moderate sliding scale Dyslipidemia Hypertension Continue atorvastatin and amlodipine DIET: Diabetic diet DVT PROPHYLAXIS: Lovenox CODE STATUS: Goal of care discussed for more than 18 minutes, full code DISPOSITION: Med/surge Patient's status and plan discussed with the patient. Case discussed with Dr. Yeung. Plan discussed with: Patient, Other (RN) My Orders My Orders Orders - MAYRA LIMA RESDITERESA Procedure Category Date Status Time Levofloxacin 500mg PHA 05/23/24 In Process (Levaquin 500mg/ 100m 10:00 Doxycycline PHA 05/23/24 In Process 100mg/100ml 22:00 Metronidazole PHA 05/23/24 In Process 500mg/100ml (Flagyl 14:00 Sodium Chloride 0.9% PHA 05/23/24 In Process 08:30 Atorvastatin (Lipitor) PHA 05/23/24 In Process 22:00 Date of Service: May 23, 2024 Billing Provider: BONITA CABRERA MD Common Visit Codes: [id number] INP/OBS CARE(HIGH) MAYRA LIMA RESDIENT May 23, 2024 15:05 BONITA CABRERA MD May 30, 2024 01:41
[2024-05-23] MEDS: metroNIDAZOLE 500MG/100ML 100 ML IV SCH (16:28)
[2024-05-23] MEDS ORDERED: HYDROcodone-ACET 5/325MG TAB PO PRN (16:30)
[2024-05-23] MEDS: ENOXAPARIN SOD 40 MG/0.4 ML SYRINGE SC ONE (16:30)
[2024-05-23] MEDS: amLODIPine BESYLATE 5 MG TAB PO ONE (17:04)
[2024-05-23] MEDS: hydroCHLOROthiazide 25 MG TAB PO ONE (17:04)
[2024-05-23 17:43] VITALS: BP 165/74; PULSE 64; RESP 17; TEMP 97.3; O2SAT 99
[2024-05-23 20:00] VITALS: PULSE 78; RESP 18; O2SAT 95
[2024-05-23 21:00] VITALS: BP 119/49; PULSE 78; RESP 18; TEMP 98.1; O2SAT 95
[2024-05-23] MEDS: ATORVASTATIN 20 MG TAB PO SCH (21:30)
[2024-05-23] MEDS: DOXYCYCLINE 100MG/100ML 100 ML IV SCH (21:31)
[2024-05-24] VITALS (8 sets, daily range): BP systolic 132–165; BP diastolic 53–80; PULSE 69–80; RESP 17–19; TEMP 97–98.2; O2SAT 95–98
[2024-05-24 07:44] LABS: Basophils # (auto) 0 10 ^3/uL (0-0.2); Basophils % (auto) 0.5 % (0.0-2.0); Eosinophils # (auto) 0.3 10 ^3/uL (0-0.8); Eosinophils % (auto) 4.6 % (0.0-7.0); Hematocrit 37.8 % (41.0-53.0); Hemoglobin 12.6 g/dL (13.5-17.5); Lymphocytes # (auto) 1.1 10 ^3/uL (0.4-5.4); Lymphocytes % (auto) 16.5 % (10.0-50.0); Mean Corpuscular Hemoglobin 29.1 pg (28.0-32.0); Mean Corpuscular Hgb Conc. 33.3 g/dL (32.0-36.0); Mean Corpuscular Volume 87.2 fL (80.0-100.0); Monocytes # (auto) 0.5 10 ^3/uL (0-1.3); Monocytes % (auto) 7.6 % (0.0-12.0); Neutrophils # (auto) 4.6 10 ^3/uL (1.6-8.6); Neutrophils % (auto) 70.8 % (37.0-80.0); Nucleated Red Blood Cells % 0.3 %; Platelet Count (auto) 186 10^3/uL (140-450); Red Blood Cells 4.34 10^6/uL (4.5-5.90); Red Cell Distribution Width 15.5 % (11.8-14.3); White Blood Cell 6.5 10^3/uL (4.4-10.8)
[2024-05-24 07:54] LABS: Alanine Aminotransferase 26 U/L (7-40); Alkaline Phosphatase 100 U/L (46-116); Calcium 9.8 mg/dL (8.7-10.4); Carbon Dioxide 23 mmol/L (20-31); Chloride 107 mmol/L (98-107)
[2024-05-24 07:55] LABS: Albumin 4.2 g/dL (3.2-4.8); Anion Gap 9 (5-15); Aspartate Aminotransferase 16 U/L (13-40); BUN/Creatinine Ratio 29.7 (10.0-20.0); Bilirubin, Total 0.5 mg/dL (0.2-1.0); Potassium 4.8 mmol/L (3.5-5.1); Sodium 139 mmol/L (136-145); Total Protein 7.1 g/dL (5.7-8.2)
[2024-05-24 08:11] LABS: Blood Urea Nitrogen 38 mg/dL (9-23); Glucose 125 mg/dL (74-106)
--- NOTE | 2024-05-24 10:14 | ECG ---
[facility] Test Date: 2024-05-23 Test Time: 12:15:24 Pat Name: OBIE WARREN Department: ED Room: 0218 A Gender: M [employer] Engineer: NATIVIDAD : [id number] Requested By: SHANE ROCHA Order Number: [id number] Reading MD: Jimenez Mcfarland Measurements Intervals [place] Rate: 64 P: 56 MD: 184 QRS: -6 QRSD: 94 T: 12 QT: 406 QTc: 419 Interpretive Statements Sinus rhythm Electronically Signed On 05-25-2024 13:42:11 PDT by Jimenez Mcfarland Please click the below link to view image of tracing.
[2024-05-24] MEDS: hydroCHLOROthiazide 25 MG TAB PO SCH (10:18)
[2024-05-24] MEDS: ENOXAPARIN SOD 40 MG/0.4 ML SYRINGE SC SCH (10:18)
[2024-05-24] MEDS: amLODIPine BESYLATE 5 MG TAB PO SCH (10:18)
[2024-05-24] MEDS ORDERED: VANCOMYCIN PER PHARMACY 0 MG IV SCH (11:45)
[2024-05-24] MEDS: VANCOMYCIN 1.75GM/350ML 350 ML IV ONE (13:06)
--- NOTE | 2024-05-24 15:53 | DVHPNRES ---
Progress Note Date Seen: May 24, 2024 Resident Creating Document: MAYRA LIMA RENNY Has the PT tested + for MRSA If YES, has PT been informed?: No Medical Necessity Reason Pt with a Central, PICC or Fol: No Subjective Review of Systems Patient seen and examined at the bedside. Patient is feeling better, dressing is intact with no active bleeding and infection sign. Patient reports: No new complaints, Feels better Changes from previous H/P or p: Changes Objective vital signs Vital Sign Date Time Temp Pulse Resp B/P (MAP) Pulse Ox O2 Delivery O2 Flow Rate FiO2 05/24/24 13:00 97.5 75 19 143/63 (89) 98 97.5 05/24/24 08:10 Room Air* 0 21 Total Intake and Output 05/23/24 05/23/24 05/24/24 15:00 23:00 07:00 Intake Total 125 ml 100 ml 900 ml Output Total 1200 ml Balance 125 ml 100 ml -300 ml medications Current Medications Medications Dose Ordered Sig/Justine Route Start Time Stop Time Status Last Admin Dose Admin Levofloxacin/ Dextrose 100 ml @ 100 mls/hr DAILY IV 05/23/24 10:00 05/24/24 10:25 100 MLS/HR Metronidazole 100 ml @ 100 mls/hr Q8HR IV 05/23/24 14:00 05/24/24 04:28 100 MLS/HR Atorvastatin Calcium 40 mg HS PO 05/23/24 22:00 05/23/24 21:30 40 MG Hydrochlorothiazide 25 mg DAILY PO 05/24/24 10:00 05/24/24 10:18 25 MG Amlodipine Besylate 10 mg DAILY PO 05/24/24 10:00 05/24/24 10:18 10 MG Diagnostic Test (Pha) 1 strip IQ4HR 05/23/24 20:00 05/24/24 12:15 1 STRIP Insulin Human Regular IQ4HR SC 05/23/24 20:00 05/24/24 12:17 12 UNITS Dextrose 50 ml UD PRN IV 05/23/24 16:30 Enoxaparin Sodium 40 mg DAILY SC 05/24/24 10:00 05/24/24 10:18 40 MG Acetaminophen/ Hydrocodone Bitart 1 tab Q6HPRN PRN PO 05/23/24 16:30 Vancomycin HCl 0 ml @ 0 mls/hr UD IV 05/24/24 11:45 Examination General Appearance: Alert, Oriented X3, Cooperative, No acute distress HEENT: Atraumatic, PERRLA, EOMI, Mucous membrane moist/pink Respiratory: Clear to auscultation, Normal air movement Cardiovascular: Regular rate, Normal S1, Normal S2, No murmurs, no chest wall tenderness Abdominal: Normal bowel sounds, Soft, No tenderness, No hepatospenomegaly, No masses Extremities: Bilateral dorsal pedis and posterior tibial bursal 1+ with and increased capillary refill time Skin: There is an open ulcer on the dorsal surface of the left foot, with mild erythema and maceration around the wound, mild nonpitting edema. Ulcer size: 3 cm in length recent 2 cm in width, 1 cm in depth with some granulation slough on the surface. Neuro: Normal gait, Normal speech, Strength at 5/5 X4 ext, Normal tone, Sensation intact, Cranial nerves 3-12 NL, Reflexes 2+ Psych/Mental Status: Mental status NL, Mood NL laboratory and microbiology Laboratory Tests 05/24/24 06:11 Test 05/24/24 06:11 Range/Units Serum Glucose 125 H 74-106 mg/dL Microbiology Date/Time Source Procedure Growth Status 05/23/24 13:15 Foot Left Gram Stain - Final Resulted 05/23/24 13:15 Foot Left Anaerobic Culture - Preliminary Resulted 05/23/24 13:15 Foot Left Aerobic Culture - Preliminary Resulted Labs and/or images reviewed: Labs reviewed by me, Image(s) reviewed by me Problem List/Assessment/Plan Problem List/Assessment/Plan Diabetic foot Cellulitis of lower limb Left foot abscess Ruled out sepsis/necrotizing fasciitis Diabetes type 2 with hyperglycemia Ruled out DKA/HHS Pediatric consulted, performed incision and drainage of abscess, deep culture were obtained, and Integra graft was placed on the wounds Empiric antibiotic, levofloxacin, Flagyl and vancomycin IV fluid Pain management Insulin according to moderate sliding scale Dyslipidemia Hypertension Continue atorvastatin and amlodipine DIET: Diabetic diet DVT PROPHYLAXIS: Lovenox CODE STATUS: Goal of care discussed for more than 18 minutes, full code DISPOSITION: Med/surge Patient is planned to be discharged with IV antibiotic vancomycin 1 g b.i.d. for 6 weeks with home health care. Patient's status and plan discussed with the patient. Case discussed with Dr. Yeung. Plan discussed with: Patient, Other (RN) My Orders My Orders Orders - MAYRA LIMA RESDIENT Procedure Category Date Status Time Drug Screen LAB 05/23/24 Logged 15:58 Hydrochlorothiazide PHA 05/24/24 In Process Tablet (Hydrochlorot 10:00 Amlodipine Tablet PHA 05/24/24 In Process (Norvasc Tablet) 10:00 Glucose Blood PHA 05/23/24 In Process (Accu-Chek Comfort 20:00 Insulin R (Human) PHA 05/23/24 In Process (Insulin R) 20:00 Dextrose 50% Syringe PHA 05/23/24 In Process 16:30 Enoxaparin Sodium PHA 05/24/24 In Process (Lovenox) 10:00 Consistent DIET 05/23/24 Transmitted Carb(Ccho)Diabetes Dinner Hydrocodone-Acet PHA 05/23/24 In Process 5/325mg Tab ([place] 16:30 * Picc Line Consult CONS 05/24/24 Transmitted 10:46 Vancomycin Per PHA 05/24/24 In Process Pharmacy 11:45 * Tomato Pulper Operator CONS 05/24/24 Transmitted Consult Vancomycin,Trough LAB 05/25/24 Verified 05:00 Creatinine LAB 05/25/24 Verified 05:00 Date of Service: May 24, 2024 Billing Provider: BONITA CABRERA MD Common Visit Codes: [id number] INP/OBS CARE(HIGH) MAYRA LIMA RESDIENT May 24, 2024 15:53 BONITA CABRERA MD May 30, 2024 01:57
[2024-05-25 01:00] VITALS: BP 127/67; PULSE 71; RESP 18; TEMP 97.6; O2SAT 98
[2024-05-25 04:10] LABS: Basophils # (auto) 0 10 ^3/uL (0-0.2); Basophils % (auto) 0.6 % (0.0-2.0); Eosinophils # (auto) 0.3 10 ^3/uL (0-0.8); Hematocrit 35.7 % (41.0-53.0); Hemoglobin 12.4 g/dL (13.5-17.5); Lymphocytes # (auto) 1.4 10 ^3/uL (0.4-5.4); Lymphocytes % (auto) 20.5 % (10.0-50.0); Mean Corpuscular Hemoglobin 29.9 pg (28.0-32.0); Mean Corpuscular Hgb Conc. 34.7 g/dL (32.0-36.0); Mean Corpuscular Volume 86.2 fL (80.0-100.0); Monocytes # (auto) 0.6 10 ^3/uL (0-1.3); Monocytes % (auto) 8.4 % (0.0-12.0); Neutrophils # (auto) 4.6 10 ^3/uL (1.6-8.6); Neutrophils % (auto) 65.5 % (37.0-80.0); Nucleated Red Blood Cells % 0.1 %; Platelet Count (auto) 175 10^3/uL (140-450); Red Blood Cells 4.14 10^6/uL (4.5-5.90); Red Cell Distribution Width 15.5 % (11.8-14.3)
[2024-05-25 04:37] LABS: Alanine Aminotransferase 21 U/L (7-40); Albumin 3.9 g/dL (3.2-4.8); Alkaline Phosphatase 89 U/L (46-116); Anion Gap 8 (5-15); Aspartate Aminotransferase 15 U/L (13-40); BUN/Creatinine Ratio 24.8 (10.0-20.0); Calcium 9.5 mg/dL (8.7-10.4); Carbon Dioxide 22 mmol/L (20-31); Chloride 106 mmol/L (98-107); Potassium 4.7 mmol/L (3.5-5.1); Sodium 136 mmol/L (136-145); Total Protein 6.9 g/dL (5.7-8.2)
[2024-05-25 04:38] LABS: Bilirubin, Total 0.6 mg/dL (0.2-1.0); Blood Urea Nitrogen 34 mg/dL (9-23); Glucose 154 mg/dL (74-106)
[2024-05-25 05:00] VITALS: BP 137/73; PULSE 75; RESP 18; TEMP 97.8; O2SAT 98
[2024-05-25 08:05] VITALS: PULSE 75; RESP 20; O2SAT 98
[2024-05-25] MEDS: SODIUM CHLORIDE 0.9% 1,000 ML IV ONE (08:38)
[2024-05-25 08:39] VITALS: BP 127/65; PULSE 75; RESP 20; TEMP 97.9; O2SAT 98
[2024-05-25 13:00] VITALS: BP 137/70; PULSE 87; RESP 18; TEMP 97.7; O2SAT 98
--- NOTE | 2024-05-25 13:46 | DVHDSRES ---
Discharge Summary Date of Admission Resident Creating Document: BLESSING ANNE RESDIENT May 22, 2024 at 22:58 Date of Discharge: May 25, 2024 Admitting Diagnosis Diabetic foot Labs/Diagnostic Data: Laboratory Results Test 05/25/24 11:47 05/25/24 05:08 05/25/24 03:54 05/23/24 16:19 POC Glucose 225 mg/dl (70-106) Vancomycin Level Trough 11.8 ug/mL (5-10) White Blood Count 7.0 10^3/uL (4.4-10.8) Red Blood Count 4.14 10^6/uL (4.5-5.90) Hemoglobin 12.4 g/dL (13.5-17.5) Hematocrit 35.7 % (41.0-53.0) Mean Corpuscular Volume 86.2 fL (80.0-100.0) Mean Corpuscular Hemoglobin 29.9 pg (28.0-32.0) Mean Corpuscular Hemoglobin Concent 34.7 g/dL (32.0-36.0) Red Cell Distribution Width 15.5 % (11.8-14.3) Platelet Count 175 10^3/uL (140-450) Mean Platelet Volume 7.9 fL (6.9-10.8) Neutrophils (%) (Auto) 65.5 % (37.0-80.0) Lymphocytes (%) (Auto) 20.5 % (10.0-50.0) Monocytes (%) (Auto) 8.4 % (0.0-12.0) Eosinophils (%) (Auto) 5.0 % (0.0-7.0) Basophils (%) (Auto) 0.6 % (0.0-2.0) Neutrophils # (Auto) 4.6 10 ^3/uL (1.6-8.6) Lymphocytes # (Auto) 1.4 10 ^3/uL (0.4-5.4) Monocytes # (Auto) 0.6 10 ^3/uL (0-1.3) Eosinophils # (Auto) 0.3 10 ^3/uL (0-0.8) Basophils # (Auto) 0 10 ^3/uL (0-0.2) Nucleated Red Blood Cells 0.1 % Sodium Level 136 mmol/L (136-145) Potassium Level 4.7 mmol/L (3.5-5.1) Chloride Level 106 mmol/L (98-107) Carbon Dioxide Level 22 mmol/L (20-31) Anion Gap 8 (5-15) Blood Urea Nitrogen 34 mg/dL (9-23) Creatinine 1.37 mg/dL (0.700-1.30) Glomerular Filtration Rate Calc 58 mL/min (>90) BUN/Creatinine Ratio 24.8 (10.0-20.0) Serum Glucose 154 mg/dL (74-106) Calcium Level 9.5 mg/dL (8.7-10.4) Total Bilirubin 0.6 mg/dL (0.2-1.0) Aspartate Amino Transferase (AST) 15 U/L (13-40) Alanine Aminotransferase (ALT) 21 U/L (7-40) Alkaline Phosphatase 89 U/L (46-116) Total Protein 6.9 g/dL (5.7-8.2) Albumin 3.9 g/dL (3.2-4.8) Lactic Acid Level 1.0 mmol/L (0.4-2.0) Magnesium Level 2.3 mg/dL (1.6-2.6) Test 05/23/24 06:23 05/22/24 13:15 Prothrombin Time 10.4 sec (9.3-11.8) Prothrombin Time INR 0.98 (0.9-1.15) Activated Partial Thromboplast Time 24.2 SEC (24.5-34.5) Erythrocyte Sedimentation Rate 40 mm/hr (0-20) Other Laboratory Tests 05/25/24 03:54 Brief Hx & Hospital Course: This is a 64-year-old male with past medical history of diabetes, hypertension, referred from clinic due to chronic left leg also. Per patient he has chronic left foot ulcer since 3 years, had performed a skin graft 2 weeks back which has not healed properly, today upon office visit (with Podiatry, Dr. Akbar), he was referred to the hospital. He denies fever, nausea, vomiting, chest pain, shortness of breath, leg pain or any recent bowel and bladder habit changes. PMHx: Diabetes type 2 and hypertension PSHx: Underwent left foot ulcer skin graft 2 weeks back Family history: Noncontributory Social history: Denies smoking, denies any other drug use. Lives at home. Home medication: Atorvastatin, hydrochlorothiazide, lisinopril, metformin, Jardiance Allergic history: No known allergy Hospital course: Patient was admitted for management of diabetic foot/abscess. Podiatry was consulted, performed incision and drainage of abscess, deep culture were obtained, Integra graft was placed on the wounds, and recommended IV antibiotic for 6 weeks. During hospital course the patient was given empiric antibiotic of levofloxacin, Flagyl and vancomycin, IV fluid, and continued home medicine including atorvastatin and amlodipine. On 05/25/2024 discharge plan discussed with the patient, and the patient discharged home with home health care. Discharge plan: Follow up with the PCP within 1 week after discharge. Follow up with the Podiatry (Dr. Guerrero) on office within 1 week of the discharge. Home health for IV Vancomycin 1gr twice daily (dosage per pharmacy) for 6 week through PICC line, with follow up of CBC, CMP, ESR, CRP and Vancomycin trough level every tuesday. BMP and Vancomycin trough level every tuesday (trough level target of 15-20 mg/L), and follow up of results to Dr. Winkler office (the Podiatry). Continue home meds Operations or Procedures [facility] Operative Report - 2 Patient Name: Jason Escobar Unit Number: [id number] Date of : 1960 Patient Status: Admitted Inpatient Attending Doctor: Blessing Anne Resdient Operative Report - 2 Operative Report - 2 Report Details Date: 05/23/24 Preop Diagnosis: 1. Left foot osteomyelitis 2. Left foot abscess 3. Left foot chronic diabetic ulceration Postop Diagnosis: Same as preop Surgeon: Foster Winkler MD Anesthesiologist: See anesthesia Anesthesia: Mac Consent: The patient was informed of the risks and benefits of the procedure. These include but are not limited to complications of anesthesia, postoperative infection, incomplete relief of symptoms, recurrence of symptoms, damage to blood vessels, nerves and tendons, deep venous thrombosis, pulmonary embolism and possible need for repeat surgery in the future. Complications: None Estimated Blood Loss: Minimal Fluids: See anesthesia Findings: Consistent with the diagnosis Indications for Surgery: Worsening left foot wound Name of Procedure Performed 1. Left foot I&D to bone (24961) 2. Left foot wound bed preparation for graft (17890) 3. Left foot graft placement (82223) Procedure Details Procedure Details: PRE-PROCEDURE INFORMATION: In the pre-op holding area, the extremity to be operated on was clearly marked and the patient verified correct laterality of the marking. The patient was transferred to the OR table and placed in a supine position. A timeout was performed in which identification of the correct patient, procedure, location, and materials was done. The left foot and leg were prepped and draped in normal sterile fashion. DESCRIPTION OF PROCEDURE: Attention was directed to the left where area of fluctuance was noted. An incision was made over this area and was deepened through blunt dissection. The incision was deepened to the level of abscess and bone. Care was taken to the dissection to avoid any neurovascular and tendinous structures. The incision was deepened to the bone, and the abscess appeared to be purulent fluid consistent with pus. The cortices of the bone was then removed with rongeur an all necrotic tissue. After the abscess was drained, the area was irrigated with 3 L normal saline using cysto tubing. Deep cultures were then obtained from the wound. The area was then inspected and any areas of tracking, especially along the tendons were also drained. The wound bed was then prepped for placement of graft using a 15 blade to remove all the fibrotic and necrotic tissues, to allow for more exposure of underlying granular tissue. The Integra graft was then placed onto the wound and alma were applied to the foot and will stay in place for approximately 2-3 weeks. All surgical wounds were irrigated copiously with saline and closed in layers with the aforementioned suture material. A dry sterile dressing was placed on the surgical extremity. The patient was placed in a postop shoe POSTOPERATIVE INFORMATION: The patient tolerated the above noted procedure and anesthesia well and was transferred to the PACU with vital signs stable, and vascular status intact with capillary refill intact to all digits. Patient is a with the dressings clean dry and intact until first postoperative visit. Patient can be discharged today. Patient can be weight-bearing as tolerated in a postoperative shoe. Condition Good Disposition 2 Still a Patient FOSTER WINKLER DPM May 23, 2024 12:53 Condition at Discharge: Good Final Diagnosis/Problems List Diabetic foot Cellulitis of lower limb Sepsis, likely due to Left foot abscess Left foot abscess necrotizing fasciitis of left lower limb Diabetes type 2 with hyperglycemia Ruled out DKA/HHS Dyslipidemia Hypertension Mild anemia JUAN JOSE on CKD 2, likely due to VMN Discharge Disposition: Home with Health Services Discharge Instruct/Medications Diet: Consistent carbohydrate Activity: No Restrictions, As Tolerated Follow Up/Referral: Follow up with the PCP within 1 week of the discharge. Follow up with the Podiatry on outpatient basis. Medications: Injection vancomycin 1 g b.i.d. for 6 weeks through PICC line. Continue home meds. Discharge Statement: "Patient was advised to return to the ER or call 911 if any headaches, dizziness, shortness of breath, chest pain, abdominal pain, bleeding, fevers, or worsening of medical condition. Patient was counseled about treatment plan, medications, possible side effects, patientverbalized understanding. All questions were answered to the best of my ability. This discharge took greater then 30 minutes in planning, reviewing documentation, counseling the patient, and discussing with other team members." ASSESSMENT ASSESSMENT Assessment Diabetic foot Cellulitis of lower limb Left foot abscess Date of Service: May 25, 2024 Billing Provider: BONITA CABRERA MD Common Visit Codes: 25569-JMR/OBS DISCH DAY >30min BLESSING ANNE RESDIENT May 25, 2024 13:46 BONITA CABRERA MD May 30, 2024 01:53
[2024-05-25] MEDS: LIDOCAINE 1% (LOCAL ANESTH.) PF 5ml SDV ID ONE (14:28)
[2024-05-25 14:51] VITALS: BP 132/70; PULSE 87; RESP 18; TEMP 97.7; O2SAT 98
[2024-05-25] MEDS: VANCOMYCIN 1.25GM/250ML 250 ML IV SCH (16:00)
[2024-05-25] MEDS ORDERED: SODIUM CHLOR 0.9% PF (SALINE LOCK) 10ML VIAL/SYR IV SCH (22:00)
== END 2024-05-25 17:00 | disposition home health service (06) | DRG 710 ==
LOC: ER 12:50 → OVERFLOW 22:58 → CENTRAL 05-23 14:24
PROVIDERS: ADMIT Student in an Organized Health Care Education/Training Program; ATTEND Student in an Organized Health Care Education/Training Program
PROC: 0HRNXJZ Replacement of Left Foot Skin with Synthetic Substitute, External Approach (ICD-10-PCS; 2024-05-23)
PROC: 0Y9N0ZX Drainage of Left Foot, Open Approach, Diagnostic (ICD-10-PCS; principal; 2024-05-23 13:00)
PROC: 02HV33Z Insertion of Infusion Device into Superior Vena Cava, Percutaneous Approach (ICD-10-PCS; 2024-05-25)
PROC: B548ZZA Ultrasonography of Superior Vena Cava, Guidance (ICD-10-PCS; 2024-05-25)
DX: A41.9 Sepsis, unspecified organism (principal); N17.0 Acute kidney failure with tubular necrosis; M72.6 Necrotizing fasciitis; L03.116 Cellulitis of left lower limb; L97.529 Non-pressure chronic ulcer of other part of left foot with unspecified severity; E11.22 Type 2 diabetes mellitus with diabetic chronic kidney disease; D64.9 Anemia, unspecified; E11.69 Type 2 diabetes mellitus with other specified complication; M86.8X7 Other osteomyelitis, ankle and foot; L02.612 Cutaneous abscess of left foot; E11.65 Type 2 diabetes mellitus with hyperglycemia; I12.9 Hypertensive chronic kidney disease with stage 1 through stage 4 chronic kidney disease, or unspecified chronic kidney disease; N18.2 Chronic kidney disease, stage 2 (mild); Z79.899 Other long term (current) drug therapy; Z79.84 Long term (current) use of oral hypoglycemic drugs
CPT/HCPCS: 36415; 36569; 71045; 76937; 80048; 80053; 80202; 82962; 83605; 83735; 85025; 85610; 85652; 85730; 87070; 87075; 87077; 87186; 87205; 93005; G0378; J0692; J1815; J1956; J2003; J2250; J2704; J3490

== ENCOUNTER 2024-06-11 14:28 | Emergency (ER) | payer MEDICAID ==
[~2024-06-11] VITALS: Ht 172.7 cm; Wt 115.2 kg
[~2024-06-11 14:28] MED LIST changes: -LINE1TAB6 PO; -LISI30TA8 PO
[2024-06-11 14:33] VITALS: PULSE 116; RESP 20; O2SAT 98
[2024-06-11 14:41] VITALS: BP 171/99; PULSE 116; RESP 20; TEMP 98.1; O2SAT 98
--- NOTE | 2024-06-11 15:06 | ED.PDOC ---
History of Present Illness HPI Comments 64 year old male presents to the ED with a chief complaint of hypertension onset today (06/11/24). Patient was experiencing HTN, checked BP at home and was 222 systolic. Patient came to urgent care, was sent to ED due to HTN, was given 0.2 mg Clonidine prior to ED arrival. Upon ED arrival patient states he is asymptomatic, and BP was 171/91. PMHx HTN, DM. Denies chest pain, shortness of breath, headache, dizziness,nausea, vomiting, blurry vision. No other symptoms or modifying factors present at this time. Chief Complaint: High Blood Pressure Time Seen by MD: 14:57 Primary Care Provider: DR BECK Reviewed Notes: Medications, Allergies Allergies: Coded Allergies: NO KNOWN ALLERGIES (Unverified , 05/29/21) Home Meds Reported Medications Empagliflozin (Jardiance) 10 Mg Tab, 1 TAB PO DAILY for 100 Days, #100 05/23/24 Insulin Glargine (Basaglar Kwikpen) 100 Unit/Ml Inj, 10 UNIT SC QPM for 90 Days 05/23/24 Lisinopril (Lisinopril) 40 Mg Tab, 1 TAB PO DAILY for 100 Days, #100 05/23/24 Zinc Gluconate (Zinc) 50 Mg Tab, 50 MG PO DAILY, TAB 02/10/24 Ascorbic Acid (VITAMIN C TABLET) 500 Mg Tb, 1000 MG PO DAILY, TAB 02/10/24 Atorvastatin Calcium (ATORVASTATIN CALCIUM) 10 Mg Tab, 1 TAB PO QPM for 90 Days, #90 02/10/24 Hctz (Hydrochlorothiazide) 25 Mg Tab, 1 TAB PO QAM for 100 Days, #100 02/10/24 Metformin Hydrochloride (Metformin Hcl) 500 Mg Tab, 1 TAB PO BID for 90 Days, #180 02/10/24 Information Source: Patient Mode of Arrival: Ambulatory Severity: Moderate Timing: Hours Duration: Since onset Prehospital treatment: None Past Medical History PAST MEDICAL HISTORY: DM, HTN Surgical History: Denies all surgeries Family History Family History: Reviewed,noncontributory to illness Social History Smoker: Non-Smoker Alcohol: Denies ETOH Use Drugs: Denies Drug Use Lives In: Home Constitutional: denies: chills, diaphoresis, fatigue, fever, malaise, sweats, weakness, others EENTM: denies: blurred vision, double vision, ear bleeding, ear discharge, ear drainage, ear pain, ear ringing, eye pain, eye redness, hearing loss, mouth pain, mouth swelling, nasal discharge, nose bleeding, nose congestion, nose pain, photophobia, tearing, throat pain, throat swelling, voice changes, others Respiratory: denies: cough, hemoptysis, orthopnea, SOB at rest, shortness of breath, SOB with excertion, stridor, wheezing, others Cardiovascular: denies: chest pain, dizzy spells, diaphoresis, Dyspnea on exertion, edema, irregular heart beat, left arm pain, lightheadedness, palpitations, PND, syncope, others Gastrointestinal: denies: abdomen distended, abdominal pain, blood streaked bowels, constipated, diarrhea, dysphagia, difficulty swallowing, hematemesis, melena, nausea, poor appetite, poor fluid intake, rectal bleeding, rectal pain, vomiting, others Genitourinary: denies: burning, dysuria, flank pain, frequency, hematuria, incontinence, penile discharge, penile sore, pain, testicle pain, testicle swelling, urgency, others Neurological: denies: dizziness, fainting, headache, left sided numbness, left sided weakness, numbness, paresthesia, pre-existing deficit, right sided numbness, right sided weakness, seizure, speech problems, tingling, tremors, weakness, others Musculoskeletal: denies: back pain, gout, joint pain, joint swelling, muscle pain, muscle stiffness, neck pain, others Integumetry: denies: bruises, change in color, change in hair/nails, dryness, laceration, lesions, lumps, rash, wounds, others Allergic/Immunocompromised: denies: Difficulty Healing, Frequent Infections, Hives, Itching, others Hematologic/Lymphatic: denies: anemia, blood clots, easy bleeding, easy bruising, swollen glands, others Endocrine: denies: excessive hunger, excessive sweating, excessive thirst, excessive urination, flushing, intolerance to cold, intolerance to heat, unexplained weight gain, unexplained weight loss, others Psychiatric: denies: anxiety, bipolar disorder, depression, hopeless, panic disorder, schizophrenia, sleepless, suicidal, others All Other Systems: Reviewed and Negative Physical Exam General Appearance: No Apparent Distress, Normal HEENT: Normal ENT Inspection, Pharynx Normal, TMs Normal Neck: Full Range of Motion, Non-Tender, Normal, Normal Inspection Respiratory: Chest Non-Tender, Lungs Clear, No Accessory Muscle Use, No Respiratory Distress, Normal Breath Sounds Cardiovascular: No Edema, No JVD, No Murmur, No Gallop, Normal Peripheral Pulses, Regular Rate/Rhythm Breast Exam: Deferred Gastrointestinal: No Organomegaly, Non Tender, No Pulsatile Mass, Normal Bowel Sounds, Soft Genitalia: Deferred Pelvic: Deferred Rectal: Deferred Extremities: No calf tenderness, Normal capillary refill, Normal inspection, Normal range of motion, Non-tender, No pedal edema Musculoskeletal : Apperance: Normal Neurologic: Alert, needle loom setter II-XII nml as Tested, No Motor Deficits, Normal Affect, Normal Mood, No Sensory Deficits Cerebellar Function: Normal Reflexes: Normal Skin: Dry, Normal Color, Warm Lymphatic: No Adenopathy Was a procedure done? Was a procedure done?: No Differential Dx Considerations may include: Essential hypertension X-Ray, Labs, Meds, VS Vital Signs Date Time Temp Pulse Resp B/P (MAP) Pulse Ox O2 Delivery O2 Flow Rate FiO2 06/11/24 14:41 98.1 116 20 171/99 (123) 98 98.1 06/11/24 14:33 98.1 116 20 171/99 (123) 98 98.1 06/11/24 14:33 116 20 98 Room Air* 0 21 Lab Test 06/11/24 14:36 Range/Units POC Glucose 166 H 70-106 mg/dl Time of 1ST Reevaluation: 15:27 Reevaluation 1ST: Unchanged Patient Education/Counseling: Diagnosis, Treatment, Prognosis Family Education/Counseling: No Family Present Departure 1 Departure Time of Disposition: 15:17 (Patient presenting with asymptomatic hypertension that is already resolving. We will discharge patient home with outpatient follow up) Impression: Primary Impression: Asymptomatic hypertension Disposition: 01 HOME / SELF CARE / HOMELESS Condition: Stable Additional Instructions: Please continue to take your regular medications and follow up with the regular doctors. Critical Care Note Critical Care Time?: No Stability Stability form required: No I personally scribed for CYNDY JEAN MD ([email or web address]) on 06/11/24 at 15:06. Electronically submitted by Sheba Boyle ([email or web address]). CYNDY JEAN MD June 11, 2024 15:06
== END 2024-06-11 15:21 | disposition home or self-care (01) ==
LOC: ER 14:28
DX: I10 Essential (primary) hypertension (principal); E11.9 Type 2 diabetes mellitus without complications; Z79.84 Long term (current) use of oral hypoglycemic drugs; Z79.899 Other long term (current) drug therapy
CPT/HCPCS: 82947; 82962